=== PATIENT | female | born 1935 | race African-American/Black ===

== ENCOUNTER → 2016-03-08 | Outpatient (CLI) | payer MEDICARE ==
[2016-03-08 10:50] LABS: PROTHROMBIN TIME 22.5 SEC (11.4-15.4)
== END ==
LOC: OD 09:47
PROVIDERS: ATTEND Internal Medicine
DX: Z79.01 Long term (current) use of anticoagulants (principal)
CPT/HCPCS: 36415; 85610

== ENCOUNTER → 2016-03-24 | Outpatient (CLI) | payer MEDICARE ==
[2016-03-24 11:54] LABS: PROTHROMBIN TIME 28.9 SEC (11.4-15.4)
== END ==
LOC: OD 10:51
PROVIDERS: ATTEND Internal Medicine
DX: Z79.01 Long term (current) use of anticoagulants (principal)
CPT/HCPCS: 36415; 85610

== ENCOUNTER → 2016-04-19 | Outpatient (CLI) | payer MEDICARE ==
[2016-04-19 12:55] LABS: PROTHROMBIN TIME 29.9 SEC (11.4-15.4)
== END ==
LOC: OD 11:39
PROVIDERS: ATTEND Internal Medicine
DX: Z79.01 Long term (current) use of anticoagulants (principal)
CPT/HCPCS: 36415; 85610

== ENCOUNTER → 2016-05-25 | Outpatient (CLI) | payer MEDICARE ==
[2016-05-25 13:07] LABS: PROTHROMBIN TIME 27.8 SEC (11.4-15.4)
== END ==
LOC: OD 11:45
PROVIDERS: ATTEND Internal Medicine
DX: Z79.01 Long term (current) use of anticoagulants (principal)
CPT/HCPCS: 36415; 85610

== ENCOUNTER → 2016-06-23 | Outpatient (CLI) | payer MEDICARE ==
[2016-06-23 13:19] LABS: PROTHROMBIN TIME 41.2 SEC (11.4-15.4)
== END ==
LOC: OD 12:18
PROVIDERS: ATTEND Internal Medicine
DX: Z79.01 Long term (current) use of anticoagulants (principal); Z51.81 Encounter for therapeutic drug level monitoring
CPT/HCPCS: 36415; 85610

== ENCOUNTER → 2016-06-28 | Outpatient (CLI) | payer MEDICARE ==
--- NOTE | 2016-06-28 13:28 | RADIOLOGY REPORT (SQ) ---
EXAM DESCRIPTION: RIBS RIGHT W/PA CHEST COMPLETED DATE/TIME: 06/28/2016 12:03 pm REASON FOR STUDY: PLEURODYNIA R07.81 PLEURODYNIA COMPARISON: None. TECHNIQUE: Frontal view of the chest and additional views of the right ribs acquired. NUMBER OF VIEWS: Five view. LIMITATIONS: None. FINDINGS: FRONTAL CXR: No pneumothorax. Mild blunting of the right costophrenic angle. No atelecta sis or infiltrates. RIBS: No displaced rib fractures. No lytic or blastic bony lesions. OTHER: No other significant finding. IMPRESSION: 1. NO ACUTE BONY FINDINGS IN THE RIGHT RIBS. 2. MILD BLUNTING OF THE RIGHT COSTOPHRENIC ANGLE, SMALL PLEURAL EFFUSION VERSUS MILD PLEURAL SCARRING . COMMENT: SITE OF TRAUMA/COMPLAINT MARKED/STAMP COMPLETED: YES. TECHNICAL DOCUMENTATION: JOB ID: [id number] [employer]- All Rights Reserved
== END ==
LOC: OD 11:05
PROVIDERS: ATTEND Internal Medicine
DX: R07.81 Pleurodynia (principal)

== ENCOUNTER → 2016-07-04 | Outpatient (CLI) | payer MEDICARE ==
[2016-07-04 12:35] LABS: ABSOLUTE BASOPHILS # (AUTO) 0.1 10^3/uL (0.0-0.2); ABSOLUTE EOSINOPHILS # (AUTO) 0.3 10^3/uL (0.0-0.6); ABSOLUTE LYMPHOCYTES (AUTO) 1.5 10^3/uL (0.5-4.7); ABSOLUTE MONOCYTES (AUTO) 0.3 10^3/uL (0.1-1.4); ABSOLUTE NEUT (AUTO) 3.5 10^3/uL (1.7-8.2); BASOPHILS % (AUTO) 1.4 % (0-2); EOSINOPHILS % (AUTO) 5.5 % (0-6); HEMATOCRIT 39.6 % (36.0-47.0); HGB HCT DIFFERENCE -0.6; LYMPHOCYTES % (AUTO) 26.7 % (13-45); MEAN CORPUSCULAR HGB CONC 32.8 g/dL (32.0-36.0); MEAN CORPUSCULAR VOLUME 88 fl (80-97); MONOCYTES % (AUTO) 5.2 % (3-13); RED BLOOD COUNT 4.47 10^6/uL (3.72-5.28); RED CELL DISTRIBUTION WIDTH 14.1 % (11.5-14.0); SEGMENTED NEUTROPHILS % (AUTO) 61.2 % (42-78); WHITE BLOOD COUNT 5.7 10^3/uL (4.0-10.5)
[2016-07-04 13:06] LABS: ALANINE AMINOTRANSFERASE 20 U/L (9-52); ALBUMIN 3.9 g/dL (3.5-5.0); ALKALINE PHOSPHATASE 123 U/L (38-126); ANION GAP 10 (5-19); ASPARTATE AMINO TRANSFERASE 20 U/L (14-36); BILIRUBIN,DIRECT 0.3 mg/dL (0.0-0.4); BILIRUBIN,TOTAL 0.6 mg/dL (0.2-1.3); BLOOD UREA NITROGEN 6 mg/dL (7-20); CALCIUM 9.3 mg/dL (8.4-10.2); CARBON DIOXIDE 27 mmol/L (22-30); CHLORIDE 105 mmol/L (98-107); CHOLESTEROL 133.69 mg/dL (0-200); CREATININE RESULT 1.14 mg/dL (0.52-1.25); Direct HDL 37 mg/dL (>40); GLUCOSE 86 mg/dL (75-110); POTASSIUM 4.6 mmol/L (3.6-5.0); SODIUM 142.4 mmol/L (137-145); TOTAL PROTEIN 7.8 g/dL (6.3-8.2); TRIGLYCERIDES 142 mg/dL (<150)
[2016-07-04 13:17] LABS: DIRECT LDL 53 mg/dL (<100)
== END ==
LOC: OD 11:18
PROVIDERS: ATTEND Internal Medicine
DX: R53.82 Chronic fatigue, unspecified (principal); I25.10 Atherosclerotic heart disease of native coronary artery without angina pectoris; E78.5 Hyperlipidemia, unspecified
CPT/HCPCS: 36415; 80053; 80061; 84443; 85025

== ENCOUNTER → 2016-07-05 | Outpatient (CLI) | payer MEDICARE ==
--- NOTE | 2016-07-05 15:15 | RADIOLOGY REPORT (SQ) ---
EXAM DESCRIPTION: CT CHEST WITH COMPLETED DATE/TIME: 07/05/2016 1:39 pm REASON FOR STUDY: PLEURAL EFFUSION J90 PLEURAL EFFUSION, NOT ELSEWHERE CLASSIFIED COMPARISON: CT abdomen pelvis 11/08/2006 Right rib detail films 06/28/2016 TECHNIQUE: CT scan of the chest performed using helical scanning technique with dynamic intravenous contrast injection. Images reviewed with lung, soft tissue and bone windows. Reconstructed coronal and sagittal MPR images reviewed. All images stored on PACS. All CT scanners at this facility use dose modulation, iterative reconstruction, and/or weight based d osing when appropriate to reduce radiation dose to as low as reasonably achievable (ALARA). [facility]: Dose Right [facility]: CareDose [facility]: Dose Right [facility]: Teradose 4D [facility]: [employer] CONTRAST TYPE AND DOSE: 80mL Isovue 370- low osmolar. RENAL FUNCTION: Creatinine 1.1 RADIATION DOSE: 6.60 mGy. LIMITATIONS: None. FINDINGS: LUNGS AND PLEURA: A 2.2 x 1.4 cm pleural-based spiculated nodule is present at the lateral edge of the right minor fissure. This is best shown on axial image 75 and coronal image 27. A 9 mm smooth round subpleural nodule is present in the periphery of the right middle lobe on axial i mage 83 and coronal image 37. In the right posterior costophrenic sulcus, trace pleural effusion is present. There is a 4 x 2 cm l [place] parenchymal nodule in the right lower lobe which may represent round atelectasis. This is best s hown on axial image 86 and sagittal image 22. Elsewhere in both lungs, there is diffuse hyperinflation and hyperlucency from obstructive disease. Calcified granuloma right middle lobe. No left pleural effusion or pleural calcifications. No right or left pneumothorax. HILAR AND MEDIASTINAL STRUCTURES: Calcified 1.8 x 1.4 cm precarinal lymph node likely related old gra nulomatous disease HEART AND VASCULAR STRUCTURES: No thoracic aortic dissection. Thoracic aorta measures [address] diameter along the ascending aorta, upper limits of normal. Heavy coronary artery calcification. No central pulmonary emboli. No pericardial effusion. HARDWARE: None in the chest. UPPER ABDOMEN: Abdominal aorta stent graft is seen at the bottom edge of the field of view. Small bi lateral intrarenal nonobstructive less than 5 mm kidney stones are present. THYROID AND OTHER SOFT TISSUES: No masses. No adenopathy. BONES: Degenerative disc changes with vertebral body endplate sclerosis at T5-6 and T6-7 OTHER: No other significant finding. IMPRESSION: Trace right pleural effusion. 2.2 x 1.4 cm pleural-based right middle lobe nodule, postinflammatory versus malignant. Consider PET -CT for further evaluation of this finding. Probable rounded atelectasis in the right posterior costophrenic sulcus Significant obstructive lung disease. TECHNICAL DOCUMENTATION: JOB ID: [id number] Quality ID # 436: Final reports with documentation of one or more dose reduction techniques (e.g., Au tomated exposure control, adjustment of the mA and/or kV according to patient size, use of iterative reconstruction technique) 2010 [employer]- All Rights Reserved
== END ==
LOC: RAD 12:44
PROVIDERS: ATTEND Internal Medicine
DX: J90 Pleural effusion, not elsewhere classified (principal)
CPT/HCPCS: 71260

== ENCOUNTER → 2016-07-16 | Outpatient (CLI) | payer MEDICARE, OTHER ==
--- NOTE | 2016-07-17 13:51 | RADIOLOGY REPORT (SQ) ---
EXAM DESCRIPTION: PET CT LIMITED COMPLETED DATE/TIME: 07/16/2016 9:18 pm REASON FOR STUDY: RIGHT MIDDLE LOBE NODULE R91.1 SOLITARY PULMONARY NODULE R93.8 ABNORMAL FINDINGS ON DIAGNOSTIC IMAGING OF BODY STRUCT COMPARISON: CT chest dated 07/05/2016. RADIONUCLIDE AND DOSE: 12.0 mCi F18 FDG The route of agent administration: Intravenous FASTING BLOOD SUGAR: 90 mg/dl CONTRAST TYPE AND DOSE: No CT contrast given. TECHNIQUE: Blood glucose level was verified. Above dose of FDG was injected intravenously. 2-D seg mented attenuation correction images were obtained from the base of the skull to the midthighs. Nonc ontrast CT images were obtained for attenuation correction and fusion with emission images. CT image s were performed without oral or intravenous contrast and are not sensitive for parenchymal lesions. A series of overlapping emission PET images were obtained. Images reviewed and manipulated at [facility] work station by the radiologist. Images stored on PACS. LIMITATIONS: None. FINDINGS: HEAD AND NECK: No areas of abnormal metabolic activity in the soft tissues of the head and neck. CHEST: Moderate right pleural effusion which has increased in size. Mass in the posterior right lowe r lobe with mean SUV value 10.39. Additional nodular areas of increased activity within the posterio r right pleural effusion with mean SUV values 6.8 and 16.94. Spiculated lesion in the anterior right upper chest with mean SUV value 6.71. Small subpleural nodule in the medial right upper lobe adjace nt to the cardiac silhouette with mean SUV value 2.61. Calcified lymph nodes in the precarinal regio n and right hilum with no abnormal activity. ABDOMEN AND PELVIS: No areas of abnormal metabolic activity in the abdomen or pelvis. Expected physi ologic activity is present in the genitourinary system and bowel. PROXIMAL LOWER EXTREMITIES: No areas of abnormal metabolic activity in the soft tissues of the lower extremities. BONES: No abnormal metabolic activity in the visualized skeleton. ADDITIONAL CT FINDINGS: Aortoiliac grafts and grafts in the right common femoral and superficial femo ral and deep femoral arteries. No other additional significant findings on the noncontrast CT images . OTHER: No other significant findings. IMPRESSION: 1. LESIONS IN THE RIGHT LUNG DESCRIBED WITH ABNORMAL INCREASED ACTIVITY CONSISTENT WITH MALIGNANCY . MANY OF THESE LESIONS ARE RELATED TO THE MODERATE RIGHT PLEURAL EFFUSION AND/OR PLEURAL-BASED IN N ATURE AND MAY REPRESENT MALIGNANT PLEURAL EFFUSION WITH SPREAD. NO SUSPICIOUS MEDIASTINAL OR HILAR A DENOPATHY. 2. REMAINDER OF THE PET SCAN IS OTHERWISE UNREMARKABLE. INCIDENTAL CT FINDINGS ABOVE. TECHNICAL DOCUMENTATION: JOB ID: [id number] [employer]- All Rights Reserved
== END ==
LOC: RAD 19:20
PROVIDERS: ATTEND Internal Medicine
DX: R91.1 Solitary pulmonary nodule (principal)
CPT/HCPCS: 78814; A9552

== ENCOUNTER → 2016-10-24 | Outpatient (CLI) | payer MEDICARE ==
--- NOTE | 2016-10-24 11:22 | RADIOLOGY REPORT (SQ) ---
EXAM DESCRIPTION: CT CHEST WITH COMPLETED DATE/TIME: 10/24/2016 10:10 am REASON FOR STUDY: LUNG CA (C34.31) C34.31 MALIGNANT NEOPLASM OF LOWER LOBE, RIGHT BRONCHUS OR L COMPARISON: 07/16/2016 PET-CT. 07/05/2016 CT chest. TECHNIQUE: CT scan of the chest performed using helical scanning technique with dynamic intravenous contrast injection. Images reviewed with lung, soft tissue and bone windows. Reconstructed coronal and sagittal MPR images reviewed. All images stored on PACS. All CT scanners at this facility use dose modulation, iterative reconstruction, and/or weight based d osing when appropriate to reduce radiation dose to as low as reasonably achievable (ALARA). [facility]: Dose Right [facility]: CareDose [facility]: Dose Right [facility]: Teradose 4D [facility]: SMX CONTRAST TYPE AND DOSE: contrast/concentration: Isovue 370.00 mg/ml; Total Contrast Delivered: 80.0 ml; Total Saline Delivered: 55.0 ml RENAL FUNCTION: Creatinine 1.5. RADIATION DOSE: Up-to-date CT equipment and radiation dose reduction techniques were employed. CTDIv ol: 6.3 mGy. DLP: 239 mGy-cm. . LIMITATIONS: None. FINDINGS: LUNGS AND PLEURA: Upper lobe emphysema and areas of scar, linear density most pronounced i n the right mid to upper lung zone. Associated nodular pleural based density laterally is much less conspicuous. Some persistent nodularity along the medial posterior right lung base, decreased in siz e. This now measures 1.1 x 2.6 cm, associated with mild pleural fluid which has also decreased since prior. 4 mm left lower lobe apex nodule, stable. No new or developing lung lesions are appreciated . HILAR AND MEDIASTINAL STRUCTURES: Small precarinal node, subcentimeter. Small hilar nodes, stable. Right hilar nodes are calcified. HEART AND VASCULAR STRUCTURES: Cardiac enlargement with mild stable pericardial effusion. Coronary c alcification as before. No aortic aneurysm or dissection. Great vessel origins are patent. Central pulmonary arteries are free of clot. HARDWARE: Right port. UPPER ABDOMEN: Nephrolithiasis. No developing adrenal mass. THYROID AND OTHER SOFT TISSUES: No masses. No adenopathy. BONES: No significant finding. OTHER: No other significant finding. IMPRESSION: 1. Improved right lung findings. This includes decreased pleural fluid and improved nod ular mass along the posterior pleural surface. Also, along linear scarring in the right lateral lung , there is less nodularity, essentially resolved subpleural density here. No new lesions are suggest ed. TECHNICAL DOCUMENTATION: JOB ID: [id number] Quality ID # 436: Final reports with documentation of one or more dose reduction techniques (e.g., Au tomated exposure control, adjustment of the mA and/or kV according to patient size, use of iterative reconstruction technique) 2010 [employer]- All Rights Reserved
== END ==
LOC: RAD 09:25
PROVIDERS: ATTEND Physician Assistant
DX: C34.31 Malignant neoplasm of lower lobe, right bronchus or lung (principal)
CPT/HCPCS: 71260; 82565

== ENCOUNTER → 2017-01-11 | Outpatient (CLI) | payer MEDICARE ==
--- NOTE | 2017-01-11 16:01 | RADIOLOGY REPORT (SQ) ---
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 PET-CT dated 07/16/2016. TECHNIQUE: CT scan of the chest performed using helical scanning technique with dynamic intravenous contrast injection. Images reviewed with lung, soft tissue and bone windows. Reconstructed coronal and sagittal MPR images reviewed. All images stored on PACS. All CT scanners at this facility use dose modulation, iterative reconstruction, and/or weight based d osing when appropriate to reduce radiation dose to as low as reasonably achievable (ALARA). [facility]: Dose Right [facility]: CareDose [facility]: Dose Right [facility]: Teradose 4D [facility]: [employer] CONTRAST TYPE AND DOSE: 72 mL Isovue 370- low osmolar. RENAL FUNCTION: Creatinine 1.0. RADIATION DOSE: . LIMITATIONS: None. FINDINGS: LUNGS AND PLEURA: Emphysematous changes with chronic scarring. Linear scarring in the mid right lung stable. Small posterior pleural effusion versus pleural thickening slightly decreased. Pleural-based nodule in the posterior right lung base has decreased in size. Current measurements 1 x 1.8 cm with prior measurement 1.1 x 2.6 cm. 4 mm nodule in the superior segment left lower lobe un changed. No new nodules or masses. HILAR AND MEDIASTINAL STRUCTURES: No identified masses or abnormal nodes. HEART AND VASCULAR STRUCTURES: No aneurysm or dissection. No central pulmonary emboli. No pericardi al effusion. HARDWARE: Vascular access port. UPPER ABDOMEN: See separate report of the CT of the abdomen. THYROID AND OTHER SOFT TISSUES: No masses. No adenopathy. BONES: No significant finding. OTHER: No other significant finding. IMPRESSION: GENERALLY IMPROVED APPEARANCE OF THE CHEST. SLIGHT DECREASE IN THE RIGHT PLEURAL EFFUSI ON/PLEURAL THICKENING AND DECREASE IN THE PLEURAL BASED MASS IN THE POSTERIOR RIGHT LUNG BASE. NO NE W FINDINGS. TECHNICAL DOCUMENTATION: JOB ID: [id number] Quality ID # 436: Final reports with documentation of one or more dose reduction techniques (e.g., Au tomated exposure control, adjustment of the mA and/or kV according to patient size, use of iterative reconstruction technique) 2010 [employer]- All Rights Reserved
--- NOTE | 2017-01-11 16:11 | RADIOLOGY REPORT (SQ) ---
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 TECHNIQUE: CT scan of the abdomen and pelvis performed using helical scanning technique with dynamic intravenous contrast injection. No oral contrast. Images reviewed with lung, soft tissue, and bone windows. Reconstructed coronal and sagittal MPR images reviewed. Delayed images for evaluation of the urinary system also acquired. All images stored on PACS. All CT scanners at this facility use dose modulation, iterative reconstruction, and/or weight based d osing when appropriate to reduce radiation dose to as low as reasonably achievable (ALARA). [facility]: Dose Right [facility]: CareDose [facility]: Dose Right [facility]: Teradose 4D [facility]: [employer] CONTRAST TYPE AND DOSE: contrast/concentration: Isovue 370.00 mg/ml; Total Contrast Delivered: 72.0 ml; Total Saline Delivered: 66.0 ml RENAL FUNCTION: Creatinine 1.0. RADIATION DOSE: CT Rad equipment meets quality standard of care and radiation dose reduction techniq ues were employed. CTDIvol: 4.6 - 4.8 mGy. DLP: 645 mGy-cm.. LIMITATIONS: None. FINDINGS: LOWER CHEST: See separate report of the CT of the chest. LIVER: Normal size. No masses. No dilated ducts. SPLEEN: Normal size. No focal lesions. PANCREAS: No masses. No significant calcifications. No adjacent inflammation or peripancreatic fluid collections. Pancreatic duct not dilated. GALLBLADDER: No identified stones by CT criteria. No inflammatory changes to suggest cholecystitis. ADRENAL GLANDS: No significant masses or asymmetry. RIGHT KIDNEY AND URETER: No solid masses. Small calyceal calculi. No hydronephrosis or hydrourete r. LEFT KIDNEY AND URETER: No solid masses. Small calyceal calculi. No hydronephrosis or hydroureter . AORTA AND VESSELS: Patent aortoiliac stents. Proximal right femoral artery grafts visualized. Contr ast in the [place] femoral artery but no contrast visualized in the grafts. Otherwise patent vessels. RETROPERITONEUM: Retroperitoneal lymph node between the abdominal aorta and inferior vena cava, best visualized on series 8, image 33. Currently measures 2 cm with prior measurement 2.2 cm on PET-CT. There are a few additional retroperitoneal lymph nodes at this level which are not pathologically enl arged. BOWEL AND PERITONEAL CAVITY: No masses or inflammatory changes. No free fluid or peritoneal masses. APPENDIX: Normal. PELVIS: No mass. No free fluid. Normal bladder. ABDOMINAL WALL: No masses. No hernias. BONES: No significant or acute findings. Degenerative changes in the spine OTHER: No other significant finding. IMPRESSION: 1. RETROPERITONEAL LYMPH NODE DESCRIBED WHICH HAS DECREASED IN SIZE SINCE THE PRIOR PET-CT. ON PRIOR PET-CT THIS LYMPH NODE DID NOT DEMONSTRATE INCREASED ACTIVITY. 2. SMALL NONOBSTRUCTING CALYCEAL CALCULI IN BOTH KIDNEYS. 3. PATENT AORTOILIAC STENTS. CONTRAST IS NOT VISUALIZED IN THE VISUALIZED PROXIMAL RIGHT FEMORAL ART FAUSTINO GRAFTS. CONCERNING FOR OCCLUSION. 4. NO OTHER SIGNIFICANT OR ACUTE FINDING IN THE ABDOMEN OR PELVIS ON CT SCAN WITH IV CONTRAST. TECHNICAL DOCUMENTATION: JOB ID: [id number] Quality ID # 436: Final reports with documentation of one or more dose reduction techniques (e.g., Au tomated exposure control, adjustment of the mA and/or kV according to patient size, use of iterative reconstruction technique) 2010 [employer]- All Rights Reserved
== END ==
LOC: RAD 15:04
PROVIDERS: ATTEND Internal Medicine
DX: C34.31 Malignant neoplasm of lower lobe, right bronchus or lung (principal)
CPT/HCPCS: 71260; 74177; 82565

== ENCOUNTER → 2017-01-26 | Outpatient (CLI) | payer MEDICARE ==
--- NOTE | 2017-01-26 16:20 | RADIOLOGY REPORT (SQ) ---
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 The route of agent administration: Intravenous. ADDITIONAL DRUGS AND DOSES: None. TECHNIQUE: Routine delayed images at 3 hours post radionuclide injection acquired of the bony skelet on including anterior and posterior whole-body projections and additional focused images as needed. LIMITATIONS: None. FINDINGS: BONES: No bone scan evidence of metastatic disease. 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 There is mild increased uptake along the distal aspect of the tibial bony stump. Mild increased uptake at the left patella, and left 1st metatarsophalangeal joint region, bilateral shoul ders likely due to osteoarthritis KIDNEYS: Symmetric excretion without obstruction. OTHER: No other significant finding. IMPRESSION: No bone scan evidence for metastatic disease Increased uptake along the below the knee amputation tibial stump COMMENT: Quality measure 147: Current bone scan is compared with any available plain radiographs, p rior bone scans, and CT/MRI. TECHNICAL DOCUMENTATION: JOB ID: [id number] [employer]- All Rights Reserved
== END ==
LOC: RAD 08:33
PROVIDERS: ATTEND Internal Medicine
DX: C34.31 Malignant neoplasm of lower lobe, right bronchus or lung (principal)
CPT/HCPCS: 78306; A9561; Q9969

== ENCOUNTER → 2017-03-06 | Outpatient (CLI) | payer MEDICARE, MEDICAID ==
--- NOTE | 2017-03-06 16:19 | RADIOLOGY REPORT (SQ) ---
EXAM DESCRIPTION: CT CHEST WITH; CT ABD/PELVIS WITH IV ORAL COMPLETED DATE/TIME: 03/06/2017 10:49 am REASON FOR STUDY: LUNG CA C34.31 MALIGNANT NEOPLASM OF LOWER LOBE, RIGHT BRONCHUS OR L COMPARISON: 01/11/2017. CONTRAST TYPE AND DOSE: contrast/concentration: Isovue 370.00 mg/ml; Total Contrast Delivered: 70.0 ml; Total Saline Delivered: 66.0 ml RENAL FUNCTION: Creatinine 1.4 TECHNIQUE: CT scan of the chest performed using helical scanning technique with dynamic intravenous contrast injection. Images reviewed with lung, soft tissue and bone windows. Reconstructed coronal a nd sagittal MPR images reviewed. All images stored on PACS. CT scan of the abdomen and pelvis performed with intravenous and with oral contrastusing helical scan tonia technique with dynamic intravenous contrast injection. Images reviewed with lung, soft tissue a nd bone windows. Reconstructed coronal and sagittal MPR images reviewed. Delayed images for evaluat ion of the urinary system also acquired and evaluated. All images stored on PACS. All CT scanners at this facility use dose modulation, iterative reconstruction, and/or weight based d osing when appropriate to reduce radiation dose to as low as reasonably achievable (ALARA). [facility]: Dose Right [facility]: CareDose [facility]: Dose Right [facility]: Teradose 4D [facility]: [employer] RADIATION DOSE: CT Rad equipment meets quality standard of care and radiation dose reduction techniq ues were employed. CTDIvol: 4.6 - 5.0 mGy. DLP: 876 mGy-cm. . LIMITATIONS: None. FINDINGS: CHEST: LUNGS AND PLEURA: Right posterior pleural based mass looks larger, now with just under 2.9 cm. Not c lassic for round atelectasis. Previously I measure this lesion as close to 1.8 cm. Trace adjacent p leural reaction, as before. Stable appearance of the emphysema and scarring otherwise. No new opaci ties. HILAR AND MEDIASTINAL STRUCTURES: No identified masses or abnormal nodes. HEART AND VASCULAR STRUCTURES: Slightly progressive but still relatively small pericardial effusion s uggested. Cardiac enlargement with marked coronary calcification. No developing aortic aneurysm or dissection. No gross central pulmonary embolus. HARDWARE: Right port. THYROID AND OTHER SOFT TISSUES: No masses. No adenopathy. BONES: Osteopenic. No destructive lesions or acute fracture evident. OTHER: No other significant finding. ABDOMEN AND PELVIS: LIVER: Normal size. No masses. No dilated ducts. SPLEEN: Normal size. No focal lesions. PANCREAS: No masses. No significant calcifications. No adjacent inflammation or peripancreatic fluid collections. Pancreatic duct not dilated. GALLBLADDER: No identified stones by CT criteria. No inflammatory changes to suggest cholecystitis. ADRENAL GLANDS: No significant masses or asymmetry. RIGHT KIDNEY AND URETER: Nonobstructive nephrolithiasis. LEFT KIDNEY AND URETER: Nonobstructive nephrolithiasis. AORTA AND VESSELS: Status post endovascular repair of aortic aneurysm without gross endoleak suggeste d. Heavy vascular calcification of the celiac axis and origin calcification of the SMA and bilateral renal arteries. No gross occlusion evident on today's study. No overt venous clot detected. RETROPERITONEUM: Retroperitoneal adenopathy is once again noted with and aortocaval node measuring up to 1.5 cm short axis, grossly stable. BOWEL AND PERITONEAL CAVITY: Fair amount of retained stool suggesting constipation. No mechanical misael wel obstruction. No active inflammatory change or ascites. No bulky adenopathy allowing for limitin g paucity of intra-abdominal fat. APPENDIX: Normal. ABDOMINAL WALL: No bowel containing hernia or mass. Chronic scarring and postoperative changes in th e right and left groin regions. Patient has right femoral bypass graft which is incompletely assesse d. BONES: No developing lesions appreciated. OTHER: No other significant finding. IMPRESSION: 1. Pleural-based lesion in the right lower lobe looks larger on current study relative t o the most recent comparison. 2. No developing lung lesions otherwise. 3. Stable retroperitoneal a denopathy. TECHNICAL DOCUMENTATION: JOB ID: [id number] Quality ID # 436: Final reports with documentation of one or more dose reduction techniques (e.g., Au tomated exposure control, adjustment of the mA and/or kV according to patient size, use of iterative reconstruction technique) 2010 [employer]- All Rights Reserved
== END ==
LOC: RAD 09:23
PROVIDERS: ATTEND Internal Medicine
DX: C34.31 Malignant neoplasm of lower lobe, right bronchus or lung (principal)
CPT/HCPCS: 71260; 74177

== ENCOUNTER → 2017-03-26 | Outpatient (CLI) | payer MEDICARE, MEDICAID ==
--- NOTE | 2017-03-26 15:47 | RADIOLOGY REPORT (SQ) ---
EXAM DESCRIPTION: MRI HEAD COMBO COMPLETED DATE/TIME: 03/26/2017 10:36 am REASON FOR STUDY: LUNG CA C34.31 MALIGNANT NEOPLASM OF LOWER LOBE, RIGHT BRONCHUS OR L COMPARISON: None. TECHNIQUE: Multiplanar imaging includes noncontrasted T1, T2, FLAIR, diffusion with ADC map and post gadolinium contrast T1 sequences. Images stored on PACS. CONTRAST TYPE AND DOSE: 10 mL [employer] RENAL FUNCTION: Creatinine 0.8 LIMITATIONS: None. FINDINGS: ANATOMY: No anomalies. Normal vascular flow voids. Pituitary fossa normal. CSF SPACES: Normal in size and contour. No hemorrhage. CEREBRUM: Mild chronic small vessel ischemic disease. 5 mm area of restricted diffusion in the left parietal lobe consistent with small acute lacunar infarct in white matter. No associated abnormal en hancement. There is no evidence of hemorrhage, mass effect or white matter edema. No metastatic foc i are seen. POSTERIOR FOSSA: No signal alteration. No hemorrhage. No edema, masses, or mass effect. Internal jolly tory canals, cerebellopontine angles, mastoids normal. No enhancing lesions. No abnormal enhancement post contrast. DIFFUSION IMAGING: Negative for acute or subacute infarction. ORBITS: No masses. Globes normal. PARANASAL SINUSES: No fluid levels. Mucosa normal. OTHER: High-signal it is seen in the petrous apex on the left on both the T1 and T2 images consistent with cholesterol granuloma. IMPRESSION: 1. No evidence of metastatic disease involving the brain. 2. Mild chronic small vessel ischemic disease involving the white matter with small acute lacunar in farct in the white matter on the left. 3. High signal is seen in the petrous apex on the left both on the T1 and T2 images consistent with cholesterol granuloma. EVIDENCE OF ACUTE STROKE: YES. Small white matter focus. TECHNICAL DOCUMENTATION: JOB ID: [id number] [employer]- All Rights Reserved
== END ==
LOC: RAD 09:07
PROVIDERS: ATTEND Internal Medicine
DX: C34.31 Malignant neoplasm of lower lobe, right bronchus or lung (principal)
CPT/HCPCS: 82565; 70553; A9577

== ENCOUNTER → 2017-07-20 | Outpatient (CLI) | payer MEDICAID, MEDICARE ==
--- NOTE | 2017-07-20 11:00 | RADIOLOGY REPORT (SQ) ---
EXAM DESCRIPTION: CT ABD/PELVIS WITH IV ONLY; CT CHEST WITH COMPLETED DATE/TIME: 07/20/2017 9:00 am REASON FOR STUDY: LUNG CA (C34.31) C34.31 MALIGNANT NEOPLASM OF LOWER LOBE, RIGHT BRONCHUS OR L COMPARISON: CT chest abdomen pelvis 03/06/2017, 01/11/2017 CT chest 10/24/2016 PET-CT 07/16/2016 Bone scan 01/26/2017 CONTRAST TYPE AND DOSE: contrast/concentration: Isovue 370.00 mg/ml; Total Contrast Delivered: 64.0 ml; Total Saline Delivered: 58.0 ml RENAL FUNCTION: Creatinine 1.1 TECHNIQUE: CT scan of the chest performed using helical scanning technique with dynamic intravenous contrast injection. Images reviewed with lung, soft tissue and bone windows. Reconstructed coronal a nd sagittal MPR images reviewed. All images stored on PACS. CT scan of the abdomen and pelvis performed with intravenous and without oral contrastusing helical s venecia technique with dynamic intravenous contrast injection. Images reviewed with lung, soft tissu e and bone windows. Reconstructed coronal and sagittal MPR images reviewed. Delayed images for eval uation of the urinary system also acquired and evaluated. All images stored on PACS. All CT scanners at this facility use dose modulation, iterative reconstruction, and/or weight based d osing when appropriate to reduce radiation dose to as low as reasonably achievable (ALARA). [facility]: Dose Right [facility]: CareDose [facility]: Dose Right [facility]: Teradose 4D [facility]: Smart [employer] RADIATION DOSE: CT Rad equipment meets quality standard of care and radiation dose reduction techniq ues were employed. CTDIvol: 4.9 - 5.1 mGy. DLP: 680 mGy-cm. . LIMITATIONS: None. FINDINGS: CHEST: LUNGS AND PLEURA: Stable postsurgical changes in the right middle lobe along the minor fissure. No r ecurrent mass or tumor along the staple line. There is very mild pleural thickening in the right posterior costophrenic sulcus. This is 0.5 cm nod ule in this area seen on 03/06/2017 is no longer identified. Remainder of the lungs and pleura are otherwise unremarkable aside from obstructive lung disease. rways are patent. No pleural effusions. No pneumothorax. HILAR AND MEDIASTINAL STRUCTURES: Stable calcified precarinal lymph node, 1.9 x 1.5 cm in size as com pared to 03/06/2017 and 01/11/2017. HEART AND VASCULAR STRUCTURES: No aneurysm or dissection. No central pulmonary emboli. Trace stable pericardial effusion. Very heavily calcified coronary arteries. HARDWARE: Right-sided permanent central line tip superior vena cava. There is right subclavian vein stenosis on axial images 23-25. THYROID AND OTHER SOFT TISSUES: No masses. No adenopathy. BONES: No significant finding. OTHER: No other significant finding. ABDOMEN AND PELVIS: LIVER: Normal size. No masses. No dilated ducts. SPLEEN: Normal size. No focal lesions. PANCREAS: No masses. No significant calcifications. No adjacent inflammation or peripancreatic fluid collections. Pancreatic duct not dilated. GALLBLADDER: No identified stones by CT criteria. No inflammatory changes to suggest cholecystitis. ADRENAL GLANDS: No significant masses or asymmetry. RIGHT KIDNEY AND URETER: No solid masses. Multiple less than 5 mm intrarenal nonobstructive stones. No hydronephrosis or hydroureter. LEFT KIDNEY AND URETER: No solid masses. Multiple less than 5 mm intrarenal nonobstructive stones. N o hydronephrosis or hydroureter. AORTA AND VESSELS: Very heavily calcified abdominal aorta and major branches with infrarenal abdomina l aorta stent graft. Aneurysm sac now measures 4 cm in greatest diameter just above the iliac bifurc ation (was 4.8 cm in diameter on previous studies). Heavy atherosclerotic arterial vascular calcific ation of the visceral arteries. High-grade stenosis right proximal superficial femoral artery calix l image 35. Occluded left proximal superficial femoral artery. RETROPERITONEUM: No retroperitoneal adenopathy, hemorrhage or masses. BOWEL AND PERITONEAL CAVITY: No oral contrast. No CT evidence of bowel obstruction or free intraperi toneal air or fluid. APPENDIX: Normal. ABDOMINAL WALL: No masses. No hernias. PELVIS: No mass or free fluid. Normal bladder. BONES: Degenerative changes lumbar spine OTHER: No other significant finding. IMPRESSION: Treatment response, with resolution of right posterior lower lobe pleural-based nodule s caleb 03/06/2017. No CT evidence of diffuse metastatic disease over the chest abdomen or pelvis. TECHNICAL DOCUMENTATION: JOB ID: [id number] Quality ID # 436: Final reports with documentation of one or more dose reduction techniques (e.g., Au tomated exposure control, adjustment of the mA and/or kV according to patient size, use of iterative reconstruction technique) 2010 [employer]- All Rights Reserved Reading location - IP/workstation name: [email or web address]
== END ==
LOC: RAD 08:22
PROVIDERS: ATTEND Internal Medicine
DX: C34.31 Malignant neoplasm of lower lobe, right bronchus or lung (principal)
CPT/HCPCS: 71260; 74177

== ENCOUNTER → 2017-10-29 | Outpatient (CLI) | payer MEDICAID, MEDICARE ==
--- NOTE | 2017-10-29 15:40 | RADIOLOGY REPORT (SQ) ---
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 Images reviewed with lung, soft tissue and bone windows. Reconstructed coronal and sagittal MPR and MIP images reviewed. All images stored on PACS. All CT scanners at this facility use dose modulation, iterative reconstruction, and/or weight based d osing when appropriate to reduce radiation dose to as low as reasonably achievable (ALARA). [facility]: Dose Right [facility]: CareDose [facility]: Dose Right [facility]: Teradose 4D [facility]: Smart [employer] CONTRAST TYPE AND DOSE: See separate report of the same date. RENAL FUNCTION: See separate report of the same date. RADIATION DOSE: . LIMITATIONS: None. FINDINGS: LUNGS AND PLEURA: Calcified granuloma right lung. Stable bandlike scarring along the righ t major fissure. No developing nodules or effusions. HILAR AND MEDIASTINAL STRUCTURES: No identified masses or abnormal nodes. HEART AND VASCULAR STRUCTURES: No aneurysm or dissection. No central pulmonary emboli. No pericardi al effusion. HARDWARE: None in the chest. UPPER ABDOMEN: See separate report of the CT of the abdomen. THYROID AND OTHER SOFT TISSUES: No masses. No adenopathy. BONES: No acute findings. OTHER: Right-sided port tip in the SVC. IMPRESSION: No evidence of local recurrence or metastatic disease. TECHNICAL DOCUMENTATION: JOB ID: [id number] Quality ID # 436: Final reports with documentation of one or more dose reduction techniques (e.g., Au tomated exposure control, adjustment of the mA and/or kV according to patient size, use of iterative reconstruction technique) 2010 [employer]- All Rights Reserved Reading location - IP/workstation name: [email or web address]
--- NOTE | 2017-10-29 15:44 | RADIOLOGY REPORT (SQ) ---
EXAM DESCRIPTION: CT ABD/PELVIS WITH IV ONLY COMPLETED DATE/TIME: 10/29/2017 3:12 pm REASON FOR STUDY: C34.31 LUNG CANCER C34.31 MALIGNANT NEOPLASM OF LOWER LOBE, RIGHT BRONCHUS OR L COMPARISON: 07/20/2017 TECHNIQUE: CT scan of the abdomen and pelvis performed using helical scanning technique with dynamic intravenous contrast injection. No oral contrast. Images reviewed with lung, soft tissue, and bone windows. Reconstructed coronal and sagittal MPR images reviewed. Delayed images for evaluation of the urinary system also acquired. All images stored on PACS. All CT scanners at this facility use dose modulation, iterative reconstruction, and/or weight based d osing when appropriate to reduce radiation dose to as low as reasonably achievable (ALARA). [facility]: Dose Right [facility]: CareDose [facility]: Dose Right [facility]: Teradose 4D [facility]: [employer] CONTRAST TYPE AND DOSE: contrast/concentration: Isovue 350.00 mg/ml; Total Contrast Delivered: 71.0 ml; Total Saline Delivered: 66.0 ml RENAL FUNCTION: Creatinine 1.3 RADIATION DOSE: CT Rad equipment meets quality standard of care and radiation dose reduction techniq ues were employed. CTDIvol: 5.8 - 6.6 mGy. DLP: 790 mGy-cm.. LIMITATIONS: None. FINDINGS: LOWER CHEST: See separate report of the CT of the chest. LIVER: Normal size. No masses. No dilated ducts. SPLEEN: Normal size. No focal lesions. PANCREAS: No masses. No significant calcifications. No adjacent inflammation or peripancreatic fluid collections. Pancreatic duct not dilated. GALLBLADDER: No identified stones by CT criteria. No inflammatory changes to suggest cholecystitis. ADRENAL GLANDS: No significant masses or asymmetry. RIGHT KIDNEY AND URETER: No solid masses. Renal calculi measuring up to about 4 mm. No hydronephr osis or hydroureter. LEFT KIDNEY AND URETER: No solid masses. Renal calculi measuring up to 5 mm. No hydronephrosis or hydroureter. AORTA AND VESSELS: Stable appearance of aortic endograft. No significant endoleak. RETROPERITONEUM: No retroperitoneal adenopathy, hemorrhage or masses. BOWEL AND PERITONEAL CAVITY: No masses or inflammatory changes. No free fluid or peritoneal masses. APPENDIX: Normal. PELVIS: No mass. No free fluid. Normal bladder. ABDOMINAL WALL: No masses. No hernias. BONES: No acute findings. OTHER: No other significant finding. IMPRESSION: No evidence of metastatic disease. TECHNICAL DOCUMENTATION: JOB ID: [id number] Quality ID # 436: Final reports with documentation of one or more dose reduction techniques (e.g., Au tomated exposure control, adjustment of the mA and/or kV according to patient size, use of iterative reconstruction technique) 2010 [employer]- All Rights Reserved Reading location - IP/workstation name: [email or web address]
== END ==
LOC: RAD 15:38
PROVIDERS: ATTEND Internal Medicine
DX: C34.31 Malignant neoplasm of lower lobe, right bronchus or lung (principal)
CPT/HCPCS: 71260; 74177; 82565

== ENCOUNTER → 2018-01-24 | Outpatient (CLI) | payer MEDICAID, MEDICARE ==
--- NOTE | 2018-01-24 10:54 | RADIOLOGY REPORT (SQ) ---
EXAM DESCRIPTION: CT CHEST WITH COMPLETED DATE/TIME: 01/24/2018 10:12 am REASON FOR STUDY: LUNG CA (C34.31 C34.31 MALIGNANT NEOPLASM OF LOWER LOBE, RIGHT BRONCHUS OR L COMPARISON: 10/29/2017, 07/20/2017, 03/06/2017. TECHNIQUE: CT scan of the chest performed using helical scanning technique with dynamic intravenous contrast injection. Images reviewed with lung, soft tissue and bone windows. Reconstructed coronal and sagittal MPR and MIP images reviewed. All images stored on PACS. All CT scanners at this facility use dose modulation, iterative reconstruction, and/or weight based d osing when appropriate to reduce radiation dose to as low as reasonably achievable (ALARA). [facility]: Dose Right [facility]: CareDose [facility]: Dose Right [facility]: Teradose 4D [facility]: ZYB CONTRAST TYPE AND DOSE: 82 mL Omnipaque 350- low osmolar. RENAL FUNCTION: Creatinine 1.2. RADIATION DOSE: . LIMITATIONS: None. FINDINGS: LUNGS AND PLEURA: Emphysematous changes. Stable mild scarring in the right lung. Calcifi ed granuloma in the right lung. No opacities, nodules, masses. No pneumothorax. No effusions. HILAR AND MEDIASTINAL STRUCTURES: No identified masses or abnormal nodes. HEART AND VASCULAR STRUCTURES: No aneurysm or dissection. No central pulmonary emboli. Marked coron morris artery calcifications. Stable minimal pericardial effusion. HARDWARE: Vascular port. UPPER ABDOMEN: No significant findings. Limited exam. THYROID AND OTHER SOFT TISSUES: No masses. No adenopathy. BONES: No significant finding. OTHER: No other significant finding. IMPRESSION: STABLE CT OF THE CHEST WITH IV CONTRAST. EMPHYSEMATOUS CHANGES WITH SCARRING IN THE RIG HT LUNG. MILD PERICARDIAL EFFUSION, UNCHANGED FROM PRIOR STUDIES. NO EVIDENCE OF RESIDUAL OR RECURR ENT MALIGNANCY OR METASTASES. TECHNICAL DOCUMENTATION: JOB ID: [id number] Quality ID # 436: Final reports with documentation of one or more dose reduction techniques (e.g., Au tomated exposure control, adjustment of the mA and/or kV according to patient size, use of iterative reconstruction technique) 2010 [employer]- All Rights Reserved Reading location - IP/workstation name: [email or web address]
--- NOTE | 2018-01-24 11:05 | RADIOLOGY REPORT (SQ) ---
EXAM DESCRIPTION: CT ABD/PELVIS WITH IV ORAL COMPLETED DATE/TIME: 01/24/2018 10:12 am REASON FOR STUDY: LUNG CA (C34.31 C34.31 MALIGNANT NEOPLASM OF LOWER LOBE, RIGHT BRONCHUS OR L COMPARISON: 10/29/2017, 07/20/2017, 03/06/2017, and 01/11/2017. TECHNIQUE: CT scan of the abdomen and pelvis performed using helical scanning technique with dynamic intravenous contrast injection. No oral contrast. Images reviewed with lung, soft tissue, and bone windows. Reconstructed coronal and sagittal MPR images reviewed. Delayed images for evaluation of the urinary system also acquired. All images stored on PACS. All CT scanners at this facility use dose modulation, iterative reconstruction, and/or weight based d osing when appropriate to reduce radiation dose to as low as reasonably achievable (ALARA). [facility]: Dose Right [facility]: CareDose [facility]: Dose Right [facility]: Teradose 4D [facility]: [employer] CONTRAST TYPE AND DOSE: contrast/concentration: Isovue 350.00 mg/ml; Total Contrast Delivered: 82.0 ml; Total Saline Delivered: 68.0 ml RENAL FUNCTION: Creatinine 1.2. RADIATION DOSE: CT Rad equipment meets quality standard of care and radiation dose reduction techniq ues were employed. CTDIvol: 4.9 - 5.7 mGy. DLP: 752 mGy-cm.. LIMITATIONS: None. FINDINGS: LOWER CHEST: No significant findings. No nodules or infiltrates. LIVER: Normal size. No masses. No dilated ducts. SPLEEN: Normal size. No focal lesions. PANCREAS: No masses. No significant calcifications. No adjacent inflammation or peripancreatic fluid collections. Pancreatic duct not dilated. GALLBLADDER: No identified stones by CT criteria. No inflammatory changes to suggest cholecystitis. ADRENAL GLANDS: No significant masses or asymmetry. RIGHT KIDNEY AND URETER: No solid masses. Several small calyceal calculi. No hydronephrosis or hy droureter. LEFT KIDNEY AND URETER: No solid masses. Several small calyceal calculi. No hydronephrosis or hyd roureter. AORTA AND VESSELS: Patent aorto iliac endograft. The proximal portion of a right femoral bypass ana luisa t is visualized. Contrast does not enter the lumen of the bypass graft. RETROPERITONEUM: No retroperitoneal adenopathy, hemorrhage or masses. BOWEL AND PERITONEAL CAVITY: No masses or inflammatory changes. No free fluid or peritoneal masses. APPENDIX: Normal. PELVIS: No mass. No free fluid. Normal bladder. ABDOMINAL WALL: No masses. No hernias. BONES: No significant or acute findings. Degenerative changes in the lower lumbar spine. OTHER: No other significant finding. IMPRESSION: 1. SEVERAL SMALL NONOBSTRUCTING CALYCEAL CALCULI IN BOTH KIDNEYS. 2. PATENT AORTOILIAC ENDOGRAFT WITH NO CONCERNING APPEARANCE. A PORTION OF A RIGHT FEMORAL BYPASS GR AFT IS VISUALIZED AND APPEARS TO BE OCCLUDED. 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 3. NO OTHER SIGNIFICANT OR ACUTE FINDING IN THE ABDOMEN OR PELVIS ON CT SCAN WITH IV CONTRAST. NO EV IDENCE OF METASTATIC INVOLVEMENT. TECHNICAL DOCUMENTATION: JOB ID: [id number] Quality ID # 436: Final reports with documentation of one or more dose reduction techniques (e.g., Au tomated exposure control, adjustment of the mA and/or kV according to patient size, use of iterative reconstruction technique) 2010 [employer]- All Rights Reserved Reading location - IP/workstation name: [email or web address]
== END ==
LOC: RAD 09:22
PROVIDERS: ATTEND Internal Medicine
DX: C34.31 Malignant neoplasm of lower lobe, right bronchus or lung (principal); N20.0 Calculus of kidney; I31.3 Pericardial effusion (noninflammatory)
CPT/HCPCS: 71260; 74177; 82565

== ENCOUNTER → 2018-07-03 | Outpatient (CLI) | payer MEDICARE, MEDICAID ==
--- NOTE | 2018-07-03 15:16 | RADIOLOGY REPORT (SQ) ---
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 Images reviewed with lung, soft tissue and bone windows. Reconstructed coronal and sagittal MPR images reviewed. All images stored on PACS. CT scan of the abdomen and pelvis performed without intravenous contrast and withoutoral contrast usi ng helical scanning technique with dynamic intravenous contrast injection. Images reviewed with lung , soft tissue and bone windows. Reconstructed coronal and sagittal MPR images reviewed. All images stored on PACS. All CT scanners at this facility use dose modulation, iterative reconstruction, and/or weight based d osing when appropriate to reduce radiation dose to as low as reasonably achievable (ALARA). [facility]: Dose Right [facility]: CareDose [facility]: Dose Right [facility]: Teradose 4D [facility]: [employer] RADIATION DOSE: CT Rad equipment meets quality standard of care and radiation dose reduction techniq ues were employed. CTDIvol: 7.0 mGy. DLP: 510 mGy-cm. mGy. LIMITATIONS: No technical limitations. FINDINGS: CHEST: AXILLAE: No adenopathy. CHEST WALL: No masses. No subcutaneous air. LUNGS: Old surgical nikita along the right middle lobe. Calcified granuloma along the right minor f issure. No pneumothorax. No infiltrates. Hyperinflation from obstructive lung disease. PLEURA: There is stable chronic pleural thickening along the right posterior costophrenic sulcus. No pleural effusion. No gross pleural-based nodules THYROID: No masses or significant asymmetry. HILAR AND MEDIASTINAL STRUCTURES: No identified masses or abnormal nodes. AORTA AND GREAT VESSELS: No aneurysm. HEART: No pericardial effusion. Very heavily calcified coronary artery HARDWARE AND LIFELINES: Right-sided permanent central line tip superior vena cava BONES: No significant finding. OTHER: No other significant finding. ABDOMEN AND PELVIS: LIVER: Normal size. No masses. No dilated ducts. SPLEEN: Normal size. No focal lesions. PANCREAS: No masses. No significant calcifications. No adjacent inflammation or peripancreatic flui d collections. Pancreatic duct not dilated. GALLBLADDER: No identified stones by CT criteria. No inflammatory changes to suggest cholecystitis. ADRENAL GLANDS: No significant masses or asymmetry. RIGHT KIDNEY AND URETER: No solid masses. Assessment limited by lack of IV contrast. Multiple tiny r ight-sided intrarenal nonobstructive stones. No right ureteral stones. No hydronephrosis or hydroure ter. LEFT KIDNEY AND URETER: No solid masses. Assessment limited by lack of IV contrast. Multiple tiny le ft-sided intrarenal nonobstructive stones. No left ureteral stones. No hydronephrosis or hydroureter . AORTA AND VESSELS: No aneurysm. Previously treated aneurysm with aortic stent graft. RETROPERITONEUM: No retroperitoneal adenopathy, hemorrhage or masses. APPENDIX: Normal. LARGE AND SMALL BOWEL: No dilatation. No masses. No wall thickening. ABDOMINAL WALL: No hernia or masses. PERITONEAL CAVITY: No free air. No free fluid. No peritoneal implants or masses. PELVIS: No mass or free fluid. Normal bladder. Normal size female pelvic organs BONES: No significant or acute findings. OTHER: No other significant finding. IMPRESSION: No CT evidence of metastatic disease to the chest abdomen or pelvis given history of carrie g cancer. Stable pleural thickening in the right posterior costophrenic sulcus TECHNICAL DOCUMENTATION: JOB ID: [id number] Quality ID # 436: Final reports with documentation of one or more dose reduction techniques (e.g., Au tomated exposure control, adjustment of the mA and/or kV according to patient size, use of iterative reconstruction technique) 2010 [employer]- All Rights Reserved Reading location - IP/workstation name: [email or web address]
== END ==
LOC: RAD 13:27
PROVIDERS: ATTEND Internal Medicine
DX: C34.31 Malignant neoplasm of lower lobe, right bronchus or lung (principal)
CPT/HCPCS: 71250; 74176

== ENCOUNTER → 2019-01-06 | Outpatient (CLI) | payer MEDICAID, MEDICARE ==
--- NOTE | 2019-01-06 11:08 | RADIOLOGY REPORT (SQ) ---
EXAM DESCRIPTION: CT CHEST WITHOUT; CT ABD/PELVIS NO ORAL OR IV COMPLETED DATE/TIME: 01/06/2019 9:55 am REASON FOR STUDY: MALIGNANT NEOPLASM OF LOWER LOBE, RIGHT BRONCHUS OR LUNG C34.31 MALIGNANT NEOPLAS M OF LOWER LOBE, RIGHT BRONCHUS OR L COMPARISON: CT abdomen pelvis 07/03/2018, 01/24/2018, 10/29/2017, 07/20/2017, 03/06/2017 TECHNIQUE: CT scan of the chest performed without intravenous contrast using helical scanning techni que. Images reviewed with lung, soft tissue and bone windows. Reconstructed coronal and sagittal MPR images reviewed. All images stored on PACS. CT scan of the abdomen and pelvis performed without intravenous contrast and withoutoral contrast usi ng helical scanning technique with dynamic intravenous contrast injection. Images reviewed with lung , soft tissue and bone windows. Reconstructed coronal and sagittal MPR images reviewed. All images stored on PACS. All CT scanners at this facility use dose modulation, iterative reconstruction, and/or weight based d osing when appropriate to reduce radiation dose to as low as reasonably achievable (ALARA). [facility]: Dose Right [facility]: CareDose [facility]: Dose Right [facility]: Teradose 4D [facility]: Smart [employer] RADIATION DOSE: CT Rad equipment meets quality standard of care and radiation dose reduction techniq ues were employed. CTDIvol: 4.7 - 5.5 mGy. DLP: 462 mGy-cm. mGy. LIMITATIONS: No technical limitations. FINDINGS: CHEST: AXILLAE: No adenopathy. CHEST WALL: No masses. No subcutaneous air. LUNGS: Lungs are hyperinflated and hyperlucent from obstructive lung disease. Old wedge resection st ate in the lateral aspect right middle lobe. Stable bandlike scarring in the right posterior costoph renic sulcus. PLEURA: No effusions. No calcifications. THYROID: No masses or significant asymmetry. HILAR AND MEDIASTINAL STRUCTURES: No identified masses or abnormal nodes. AORTA AND GREAT VESSELS: No aneurysm. HEART: No pericardial effusion. Calcified coronary arteries. Trace pericardial effusion, similar co mpared to 07/03/2018 and 01/24/2018 HARDWARE AND LIFELINES: Right permanent central line tip superior vena cava. BONES: No significant finding. OTHER: No other significant finding. ABDOMEN AND PELVIS: LIVER: Normal size. No masses. No dilated ducts. SPLEEN: Normal size. No focal lesions. PANCREAS: No masses. No significant calcifications. No adjacent inflammation or peripancreatic flui d collections. Pancreatic duct not dilated. GALLBLADDER: No identified stones by CT criteria. No inflammatory changes to suggest cholecystitis. ADRENAL GLANDS: No significant masses or asymmetry. RIGHT KIDNEY AND URETER: No solid masses. Assessment limited by lack of IV contrast. Multiple calci fications of the right hilum, small intrarenal nonobstructive stones versus vascular calcifications. No hydronephrosis or hydroureter. LEFT KIDNEY AND URETER: No solid masses. Assessment limited by lack of IV contrast. Multiple calcif ications at the left renal hilum, small intrarenal stones versus vascular calcifications. No hydron ephrosis or hydroureter. AORTA AND VESSELS: Heavily calcified abdominal aorta, aortic stent graft throughout the infrarenal ab dominal aorta extending to the proximal common iliac arteries RETROPERITONEUM: No retroperitoneal adenopathy, hemorrhage or masses. APPENDIX: Normal, best shown on axial image 5 LARGE AND SMALL BOWEL: No dilatation. No masses. No wall thickening. ABDOMINAL WALL: No hernia or masses. PERITONEAL CAVITY: No free air. No free fluid. No peritoneal implants or masses. PELVIS: No mass or free fluid. Normal bladder. Normal size female pelvic organs. BONES: Lower lumbar facet arthropathy OTHER: No other significant finding. IMPRESSION: No CT evidence of metastatic disease to the chest abdomen or pelvis given history of carrie g cancer Obstructive lung disease Aortic stent graft without recurrent infrarenal abdominal aortic aneurysm TECHNICAL DOCUMENTATION: JOB ID: [id number] Quality ID # 436: Final reports with documentation of one or more dose reduction techniques (e.g., Au tomated exposure control, adjustment of the mA and/or kV according to patient size, use of iterative reconstruction technique) 2010 [employer]- All Rights Reserved Reading location - IP/workstation name: [email or web address]
== END ==
LOC: RAD 08:55
PROVIDERS: ATTEND Internal Medicine
DX: C34.31 Malignant neoplasm of lower lobe, right bronchus or lung (principal); J44.9 Chronic obstructive pulmonary disease, unspecified
CPT/HCPCS: 71250; 74176

== ENCOUNTER → 2019-07-14 | Outpatient (CLI) | payer MEDICARE ==
--- NOTE | 2019-07-14 11:50 | RADIOLOGY REPORT (SQ) ---
EXAM DESCRIPTION: CT ABD/PELVIS NO ORAL OR IV IMAGES COMPLETED DATE/TIME: 07/14/2019 10:13 am REASON FOR STUDY: LUNG CANCER C34.31 MALIGNANT NEOPLASM OF LOWER LOBE, RIGHT BRONCHUS OR L COMPARISON: 01/06/2019 TECHNIQUE: CT scan of the abdomen and pelvis performed without intravenous or oral contrast. Images reviewed with lung, soft tissue, and bone windows. Reconstructed coronal and sagittal MPR images revi ewed. All images stored on PACS. All CT scanners at this facility use dose modulation, iterative reconstruction, and/or weight based d osing when appropriate to reduce radiation dose to as low as reasonably achievable (ALARA). [facility]: Dose Right [facility]: CareDose [facility]: Dose Right [facility]: Teradose 4D [facility]: [employer] RADIATION DOSE: CT Rad equipment meets quality standard of care and radiation dose reduction techniq ues were employed. CTDIvol: 4.5 - 4.6 mGy. DLP: 400 mGy-cm. LIMITATIONS: None. FINDINGS: LOWER CHEST: Please see CT chest report. NON-CONTRASTED LIVER, SPLEEN, ADRENALS: Mild thickening of the adrenal glands. Evaluation limited b y lack of IV contrast. PANCREAS: No masses. No peripancreatic inflammatory changes. GALLBLADDER: No identified stones by CT criteria. No inflammatory changes to suggest cholecystitis. RIGHT KIDNEY AND URETER: Stable nonobstructing multiple renal calculi versus vascular calcifications . Assessment limited by lack of IV contrast. LEFT KIDNEY AND URETER: Incomplete duplication of the left kidney. Stable nonobstructing multiple r enal calculate versus vascular calcifications. Assessment limited by lack of IV contrast. AORTA AND RETROPERITONEUM: Atherosclerotic changes involving the abdominal aorta and branch vessels. Abdominal spupt-dw-qblhs endovascular stent graft related to prior aneurysm repair. No retroperiton eal masses or adenopathy. BOWEL AND PERITONEAL CAVITY: No obvious masses or inflammatory changes. No free fluid. APPENDIX: Normal. PELVIS, BLADDER, AND ABDOMINAL WALL: Stable 2.4 cm complex right adnexal mass, axial image 16, serie s 3. No free fluid. Bladder normal. BONES: Partially visualized right paravertebral soft tissue mass with adjacent osseous destruction o f the vertebral bodies and posterior elements, involving the visualized lower thoracic spine. . It extends into the foramina and abuts and slightly displaces the thoracic cord to the left of the midli ne. The mass also appears to abut the adjacent right paraspinal musculature. Considerations for the se findings include metastatic disease. OTHER: No other significant finding. IMPRESSION: 1. Partially visualized right paravertebral soft tissue mass with adjacent osseous dest ruction of the vertebral bodies and posterior elements, involving the visualized lower thoracic spine as above. 2. Mild thickening of the adrenal glands. 3. Stable appearing complex right adnexal mass. Further evaluation with pelvic ultrasound. 4. Prior abdominal aorto -bi-iliac endovascular stent graft related to aneurysm repair. 5. Additional stable findings as above. COMMENT: Quality ID # 436: Final reports with documentation of one or more dose reduction techniques (e.g., Automated exposure control, adjustment of the mA and/or kV according to patient size, use of iterative reconstruction technique) TECHNICAL DOCUMENTATION: JOB ID: [id number] 2010 [email or web address]- All Rights Reserved Reading location - IP/workstation name: [email or web address]
--- NOTE | 2019-07-14 11:55 | RADIOLOGY REPORT (SQ) ---
EXAM DESCRIPTION: CT CHEST WITHOUT IMAGES COMPLETED DATE/TIME: 07/14/2019 10:43 am REASON FOR STUDY: LUNG CANCER C34.31 MALIGNANT NEOPLASM OF LOWER LOBE, RIGHT BRONCHUS OR L COMPARISON: CT of the chest without contrast from 01/06/2019. TECHNIQUE: CT scan performed of the chest without intravenous contrast. Images reviewed with lung, soft tissue and bone windows. Reconstructed coronal and sagittal MPR images reviewed. All images st ored on PACS. All CT scanners at this facility use dose modulation, iterative reconstruction, and/or weight based d osing when appropriate to reduce radiation dose to as low as reasonably achievable (ALARA). [facility]: Dose Right [facility]: CareDose [facility]: Dose Right [facility]: Teradose 4D [facility]: [employer] LIMITATIONS: No technical limitations. FINDINGS: LUNGS AND PLEURA: Unchanged postoperative findings in the right middle lobe consistent wit h prior wedge resection. The moderate to severe upper lobe predominant centrilobular emphysema in th e area of pleural thickening along the posteromedial aspect of the right hemithorax are unchanged. T here is no acute consolidation, ground-glass opacification or pleural effusion. LUNG NODULES: The solid 3 mm nodule in the left upper lobe (image 28 of series 6) is new, the solid 3 mm nodule in the lingula that abuts the interlobar fissure (image 70 of series 6) is new, the calci fied granuloma in the right upper lobe (image 80 of series 6) is unchanged, the solid 8 mm nodule in the right lower lobe (image 100 of series 6) is new, the solid 12 mm nodule in the right lower lobe ( image 6 of series 6) has increased in size, and the solid 3 mm nodule in the superior segment of the left lower lobe (image 59 of series 6) has increased in size. HILAR AND MEDIASTINAL STRUCTURES: Evaluation of the bulmaro for adenopathy is limited due to the absence of intravenous contrast. There are stable calcified nonenlarged right lower paratracheal and right hilar lymph nodes. HEART AND VASCULAR STRUCTURES: Severe atherosclerotic calcification of the coronary arteries. The as cending thoracic aorta measures 4.2 cm in transverse diameter. There is a trace pericardial effusion . UPPER ABDOMEN: Refer to the separate report of the CT of the abdomen. THYROID AND OTHER SOFT TISSUES: No adenopathy or mass. BONES: Osteolytic paraspinal mass that involves the transverse processes, pedicles and vertebral bod ies of the T10, T11 and T12 vertebra and extends into the epidural space/ neuroforamina on the right. HARDWARE: None in the chest. OTHER: No other findings. IMPRESSION: 1. 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 2. New and enlarging bilateral pulmonary nodules as detailed above. The above findings are concerning for recurrence of malignant disease. TECHNICAL DOCUMENTATION: JOB ID: [id number] Quality ID # [id number]: Final reports with documentation of one or more dose reduction techniques (e.g., Au tomated exposure control, adjustment of the mA and/or kV according to patient size, use of iterative reconstruction technique) 2010 [employer]- All Rights Reserved Reading location - IP/workstation name: [email or web address]
== END ==
LOC: RAD 09:47
PROVIDERS: ATTEND Internal Medicine
DX: C34.31 Malignant neoplasm of lower lobe, right bronchus or lung (principal)
CPT/HCPCS: 71250; 74176

== ENCOUNTER → 2019-07-21 | Outpatient (CLI) | payer MEDICARE ==
--- NOTE | 2019-07-22 09:49 | RADIOLOGY REPORT (SQ) ---
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 Coronal T2/ HASTE imaging. LIMITATIONS: None. FINDINGS: SEGMENTATION: No transitional anatomy. The lowest well-developed disc space is labeled L5- S1. ALIGNMENT: Mild convex leftward lumbar curvature. Mild grade 1 anterolisthesis of L4 over L5 VERTEBRAE: Intact. BONE MARROW: Advanced mixed fatty and sclerotic vertebral body endplate change at L3-4 and L4-5 DISC SIGNAL: Diffuse decreased T2 weighted intervertebral disc signal POSTERIOR ELEMENTS: Diffuse facet arthropathy. No gross spondylolysis HARDWARE: None in the spine. CORD AND CONUS: Normal in size and signal intensity. Conus at the L1-2 level. SOFT TISSUES: Post aortic stent graft for abdominal aortic aneurysm repair, incompletely included in the field of view T12-L1: No central or foraminal stenosis. L1-L2: No central or foraminal stenosis. Mild bilateral facet hypertrophy L2-L3: No central or foraminal stenosis. Moderate bilateral facet hypertrophy L3-L4: Mild to moderate central canal stenosis results from broad diffuse posterior disc bulging and bulky bilateral facet and ligament hypertrophy. There is narrowing of thecal sac and partial effacem ent of the CSF around the lumbar nerve roots on axial image 18. Moderate bilateral foraminal narrowi ng is present without definite exit L3 nerve root impingement. L4-L5: Broad diffuse posterior disc bulge and bony spurring, moderate bilateral facet and ligament hy pertrophy causes [id number] central canal narrowing, with flattening of the thecal sac into a t riangular shape and partial effacement of the CSF around the lumbar nerve roots best shown on axial i mage 24. There is moderate bilateral foraminal narrowing without definite exit L4 nerve root impinge ment L5-S1: Bulky bilateral facet hypertrophy and mild diffuse posterior disc bulging. No central stenosi s. Moderate bilateral foraminal narrowing SACRUM: Visualized upper sacrum intact. OTHER: No other significant findings. IMPRESSION: Degenerative changes most pronounced at L3-4 and L4-5 as above. No acute lumbar wedge compression deformity or sacral insufficiency fracture TECHNICAL DOCUMENTATION: JOB ID: [id number] 2010 [employer]- All Rights Reserved Reading location - IP/workstation name: [email or web address]
== END ==
LOC: RAD 15:25
PROVIDERS: ATTEND Internal Medicine
DX: C34.31 Malignant neoplasm of lower lobe, right bronchus or lung (principal); M51.37 Other intervertebral disc degeneration, lumbosacral region; M48.061 Spinal stenosis, lumbar region without neurogenic claudication
CPT/HCPCS: 72148; 82565

== ENCOUNTER → 2019-10-23 | Outpatient (CLI) | payer MEDICARE ==
--- OUTSIDE RECORDS SUMMARY | 2019-12-19 15:39 | XMS REPORT ---
:1936 [facility] [address] [place] [address] Care Team Providers Name Role Phone Laurence Vicente Primary Care Physician Unavailable Jojo PAGE Attending Clinician Unavailable Kenya Stroud Attending Clinician Unavailable Onesimo PAGE Attending Clinician Unavailable Laurence Vicente MD Attending Clinician Unavailable DO Tammy Echols Attending Clinician Unavailable DO Tammy Echols Admitting Clinician Unavailable Allergies, Adverse Reactions, Alerts Allergy Name Allergy Status Severity Reaction(s) Onset Inactive Treat ing Comments Type Date Date Clinician Lisinopril Lisinopril Active TABS TABS Medications Ordered Filled Start Stop Current Ordering Indication Dosage Frequency Signature Comments Components Medication Medication Date Date Medication? Clinician (SIG) Name Name Metoprolol 2019-02 Yes Anthony Dang QD Metoprolol Succinate 02-13 Jules Succinate ER 50 MG 10:03: ER 50 MG Oral Tablet 08 Oral Extended Tablet Release 24 Extended Hour Release 24 Hour TAKE 1/2 TABLET DAILY. Quantity: 30 Refills: 1 Anthony Vicente MD Start : 15-Dec-2019 Active Atorvastati 2019-02 Yes Atorvastat n Calcium 1-05 in Calcium 40 MG Oral 00:00: 40 MG Oral Tablet 00 Tablet Refills: 0 Start : 11-Dec-2019 Active fentaNYL 25 2019-02 Yes fentaNYL MCG/HR 1-05 25 MCG/HR Transdermal 00:00: Transderma Patch 72 00 l Patch 72 Hour Hour Refills: 0 Start : 11-Dec-2019 Active Amitiza 24 No Anthony Dang Q0.5D Amitiza 24 MCG Oral 8-24 Towarnicky MCG Oral Capsule 13:27: Capsule 46 take 1 capsule by mouth twice a day with food Quantity: 60 Refills: 0 Anthony Vicente MD Start : 0Active Amitiza 24 2019-0 No Anthony Dang Q0.5D Amitiza 24 MCG Oral 8-24 Georgiaarnicky MCG Oral Capsule 13:27: Capsule 46 take 1 capsule by mouth twice a day with food Quantity: 60 Refills: 0 Anthony Vicente MD Start : 0Active Amitiza 24 2019-0 No Anthony Dang Q0.5D Amitiza 24 MCG Oral 7-30 Towarnicky MCG Oral Capsule 00:00: Capsule 00 TAKE 1 CAPSULE TWICE DAILY WITH FOOD. Quantity: 60 Refills: 0 Anthony Vicente MD Start : 0Active fentaNYL 2019-0 Yes 1 6-18 00:00: 00 HYDROcodone 2019-0 Yes 1 -Acetaminop 6-11 hen 00:00: 00 hydroCHLORO 2019-0 Yes Anthony HernandezHLO R thiazide 25 5-07 Jules Othiazide MG Oral 11:08: 25 MG Oral Tablet 33 Tablet TAKE 1 TABLET BY MOUTH EVERY DAY IN THE MORNING Quantity: 90 Refills: 3 Anthony Vicente MD Start : 12-Jun-2019 Active Atorvastati 2019-0 No Anthony Dang QD Atorvasta t n Calcium 3- Jules maravilla Calcium 40 MG Oral 09:34: 40 MG Oral Tablet 11 Tablet TAKE 1 TABLET BY MOUTH EVERY DAY Quantity: 90 Refills: 3 Anthony Vicente MD Start : 0Active HYDROcodone 2019-0 Yes Anthony Dang HYDROcodo n -Acetaminop -26 Jules e-Acetami n hen 5-325 00:00: ophen MG Oral 00 5-325 MG Tablet Oral Tablet Take 1 by mouth 4 times daily as needed for lung cancer/bon e pain Quantity: 40 Refills: 0 Anthony Vicente MD Start : 0Active Metoprolol 2018-02 No Anthony Dang QD Metoprolol Succinate -26 Jules Succinate ER 50 MG 11:28: ER 50 MG Oral Tablet 35 Oral Extended Tablet Release 24 Extended Hour Release 24 Hour TAKE 1/2 TABLET DAILY. Quantity: 30 Refills: 5 Anthony Vicente MD Start : 9Active Gabapentin No Kelvin Anne0.3333D Gabapentin 600 MG Oral 6- Onesimo PAGE 600 MG Tablet 00:00: Oral 00 Tablet TAKE 1 TABLET 3 TIMES DAILY. Quantity: 90 Refills: 3 Kelvin Echols MD Start : 9Active Gabapentin No Kelvin Q0.3333D Gabapentin 600 MG Oral 6- Onesimo PAGE 600 MG Tablet 00:00: Oral 00 Tablet TAKE 1 TABLET 3 TIMES DAILY. Quantity: 90 Refills: 3 Kelvin Echols MD Start : 9Active Gabapentin Yes Kelvin Q0.3333D Gabapentin 600 MG Oral 6 Onesimo PAGE 600 MG Tablet 00:00: Oral 00 Tablet TAKE 1 TABLET 3 TIMES DAILY. Quantity: 270 Refills: 3 Kelvin Echols MD Start : 9Active Linzess 145 No Anthony R Linzess MCG Oral 4-23 Towarnicky 145 MCG Capsule 00:00: MD Oral 00 Capsule one tablet daily Quantity: 30 Refills: 3 Anthony Vicente MD Start : 9Active Linzess 145 Yes Anthony R Linzess MCG Oral -23 Towarnicky 145 MCG Capsule 00:00: MD Oral 00 Capsule one tablet daily Quantity: 30 Refills: 3 Anthony Vicente MD Start : 9Active Cilostazol No Anthony 1 Q0.5D Cilostazol 100 MG Oral - Coco 100 MG Tablet 00:00: M.D. Oral 00 Tablet TAKE 1 TABLET TWICE DAILY Quantity: 60 Refills: 3 Anthony Sepulveda M.D. Start : 9Active Aspirin 81 2017- No 1 QD Aspirin 81 MG Oral 5-03 MG Oral Tablet 00:00: Tablet Delayed 00 Delayed Release Release TAKE 1 TABLET DAILY. Refills: 0 Start : 07-Jun-2017 Active Duragesic-2 2017-0 2020- No 1 5 04-12 00:00: 10:25 00 :59 PredniSONE 2018-0 Yes 03-15 00:00: 00 Sodium 2018-0 No 30mL Sodium Chloride 1-26 Chloride 00:00: 00 Keytruda 2017-0 2018- No 200mg (pembrolizu -02 03- mab) 00:00: 00:00 00 :00 Duragesic-1 2018-0 2018- No 1 2 1-12 04-26 00:00: 14:02 00 :50 Tylenol 2016- Yes Tylenol Extra 1-13 Extra Strength 00:00: Strength 500 MG Oral 00 500 MG Tablet Oral Tablet TAKE 1 TABLET EVERY 4 TO 6 HOURS NEEDED. Refills: 0 Start : 7Active Dexamethaso 2016-02 No 12mg Dexamethas ne 1-07 one 00:00: 00 Palonosetro 2016-02 No .25mg Palonosetr n HCl 1-07 on HCl 00:00: 00 Abraxane 2016-02 No 154mg Abraxane 1-07 00:00: 00 Sodium 2016-02 No 50mL Sodium Chloride 1-07 Chloride 00:00: 00 Dexamethaso 2016-02 No 12mg Dexamethas ne 0-31 one 00:00: 00 Sodium 2016-02 No 75mL Sodium Chloride 0-31 Chloride 00:00: 00 Palonosetro 2016-02 No .25mg Palonosetr n HCl 0-31 on HCl 00:00: 00 Abraxane 2016-02 No 156mg Abraxane 0-31 00:00: 00 Dexamethaso 2016-02 2017- No 12mg ne 0-31 11-07 00:00: 00:00 00 :00 Palonosetro 2016-02 No .25mg Palonosetr n HCl 0-17 on HCl 00:00: 00 Dexamethaso 2016-02 No 10mg Dexamethas ne Sodium 0-17 one Sodium Phosphate 00:00: Phosphate 00 Sodium 2016-02 No 70mL Sodium Chloride 0-17 Chloride 00:00: 00 Abraxane 2016-02 No 182mg Abraxane 0-17 00:00: 00 Palonosetro 2016-02 No .25mg Palonosetr n HCl 0-10 on HCl 00:00: 00 Dexamethaso 2016-02 No 10mg Dexamethas ne Sodium 0-10 one Sodium Phosphate 00:00: Phosphate 00 Sodium 2016-02 No 60mL Sodium Chloride 0-10 Chloride 00:00: 00 Abraxane 2016-02 No 182mg Abraxane 0-10 00:00: 00 Palonosetro 2016-02 No .25mg Palonosetr n HCl 0-03 on HCl 00:00: 00 Dexamethaso 2017-1 No 10mg Dexamethas ne Sodium 0-03 one Sodium Phosphate 00:00: Phosphate 00 Sodium 2017-1 No 80mL Sodium Chloride 0-03 Chloride 00:00: 00 Abraxane 2017-1 No 183mg Abraxane 0-03 00:00: 00 Palonosetro 2017-0 No .25mg Palonosetr n HCl 9-19 on HCl 00:00: 00 Dexamethaso 2017-0 No 10mg Dexamethas ne Sodium 9-19 one Sodium Phosphate 00:00: Phosphate 00 Sodium 2017-0 No 70mL Sodium Chloride 9-19 Chloride 00:00: 00 Abraxane 2017-0 No 186mg Abraxane 9-19 00:00: 00 Coumadin 2017-0 2017- No 1 9-13 12-11 00:00: 14:29 00 :46 Hydration 2017-0 2017- No 1000mL 1000mL NS 9-12 09-12 00:00: 00:00 00 :00 Palonosetro 2017-0 No .25mg Palonosetr n HCl 9-05 on HCl 00:00: 00 Dexamethaso 2017-0 No 10mg Dexamethas ne Sodium 9-05 one Sodium Phosphate 00:00: Phosphate 00 Sodium 2017-0 No 70mL Sodium Chloride 9-05 Chloride 00:00: 00 Abraxane 2017-0 No 187mg Abraxane 9-05 00:00: 00 EMLA 2017-0 2018- No 1 9-05 04-26 00:00: 14:02 00 :01 Palonosetro 2017-0 No .25mg Palonosetr n HCl 8-29 on HCl 00:00: 00 Dexamethaso 2017-0 No 10mg Dexamethas ne Sodium 8-29 one Sodium Phosphate 00:00: Phosphate 00 Sodium 2017-0 No 60mL Sodium Chloride 8-29 Chloride 00:00: 00 Abraxane 2017-0 No 187mg Abraxane 8-29 00:00: 00 Palonosetro 2017-0 No .25mg Palonosetr n HCl 8-15 on HCl 00:00: 00 Dexamethaso 2017-0 No 10mg Dexamethas ne Sodium 8-15 one Sodium Phosphate 00:00: Phosphate 00 Sodium 2017-0 No 90mL Sodium Chloride 8-15 Chloride 00:00: 00 Abraxane 2017-0 No 188mg Abraxane 8-15 00:00: 00 Lomotil 2017-0 Yes 1 815 00:00: 00 Palonosetro 20170 No .25mg Palonosetr n HCl 8-08 on HCl 00:00: 00 Dexamethaso 20170 No 10mg Dexamethas ne Sodium 8-08 one Sodium Phosphate 00:00: Phosphate 00 Sodium 20170 No 70mL Sodium Chloride 8-08 Chloride 00:00: 00 Abraxane 20170 No 190mg Abraxane 808 00:00: 00 Warfarin 20170 2017- No 1 Sodium 8-08 01-15 00:00: 14:29 00 :46 Sodium 20170 No 65mL Sodium Chloride 8- Chloride 00:00: 00 Ondansetron 0 2018- No 1 HCl 09-05 00:00: 14:02 00 :01 Promethazin 0 2018- No 1 e HCl 09-05 00:00: 14:02 00 :01 Sodium 2017-0 2018- No 30mL Chloride 09-05 00:00: 00:00 00 :00 Abraxane 2017-0 2017- No 188mg Abraxane 812-12 00:00: 00:00 00 :00 Carboplatin 2017-0 2017- No 124mg 812-12 00:00: 00:00 00 :00 Palonosetro 2017-0 2017- No .25mg Palonosetr n HCl 09-05 on HCl 00:00: 00:00 00 :00 Dexamethaso 2016-0 2017- No 10mg Dexamethas ne Sodium 09-05 one Sodium Phosphate 00:00: 00:00 Phosphate 00 :00 OxyCODONE 20170 Yes 1 HCl 718 00:00: 00 Aspirin Yes 1 cloNIDine Yes 1 Gabapentin Yes 1 Linzess Yes 1 Micardis Yes 1 HCT NIFEdipine Yes 1 ER Oxycodone-A Yes 1 cetaminophe n Protonix Yes 1 Toprol XL Yes 1 Aspirin No 1 Clopidogrel 2017- No 1 Bisulfate 01-15 14:26 :51 Coumadin 2017- No 1 01-15 14:26 :56 Diovan HCT 2017- No 1 01-15 14:27 :09 Flaxseed 2017- No 1 (Linseed) 01-15 14:27 :01 Lipitor 2016- No 01-15 14:32 :10 Omeprazole 2016- No 01-15 14:27 :13 Vitamin D 2016- No (Ergocalcif 01-15 corinna) 14:27 :25 Problems Condition Condition Condition Status Onset Resolution Last Treatin g Comments Name Details Category Date Date Treatment Clinician Date Anemia due Anemia due Diagnosis active to to 03-02 chemotherap chemotherap 00:00: y y 00 Anemia Anemia Diagnosis active 03-02 00:00: 00 Dehydration Dehydration Diagnosis active 10-17 00:00: 00 Patient Patient Diagnosis active encounter encounter 09-05 status status 00:00: 00 Drug Drug Diagnosis active therapy therapy 07-31 finding finding 00:00: 00 Malignant Malignant Problem Active neoplasm of neoplasm of lower lobe, lower lobe, right right bronchus or bronchus or lung lung Gait Gait Problem Active disturbance disturbance Biliary Biliary Problem Active dyskinesia dyskinesia Complicatio Complicatio Problem Active n of n of chemotherap chemotherap y, sequela y, sequela Duodenitis Duodenitis Problem Active Numbness in Numbness in Problem Active left leg left leg PVD PVD Problem Active (peripheral (peripheral vascular vascular disease) disease) Traumatic Traumatic Problem Active open wound open wound of right of right lower leg, lower leg, sequela sequela Acute Acute Problem Active bilateral bilateral back pain, back pain, unspecified unspecified back back location location Hypertensio Hypertensio Problem Active n n Gastritis Gastritis Problem Active Abdominal Abdominal Problem Active pain, RUQ pain, RUQ (right (right upper upper quadrant) quadrant) Aortic Aortic Problem Active stenosis stenosis COPD COPD Problem Active (chronic (chronic obstructive obstructive pulmonary pulmonary disease) disease) H/O H/O Problem Active endovascula 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 Malignant Malignant Problem Inactiv neoplasm of neoplasm of e lower lobe, lower lobe, right right bronchus or bronchus or lung lung Above-knee Above-knee Problem Active amputation amputation of right of right lower lower extremity extremity with with complicatio complicatio n, sequela n, sequela Bone pain Bone pain Problem Active Flu-like Flu-like Problem Active symptoms symptoms CAD CAD Problem Active (coronary (coronary artery artery disease) disease) AAA AAA Problem Active (abdominal (abdominal aortic aortic aneurysm) aneurysm) Diabetes Diabetes Problem Active mellitus, mellitus, 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 infection infection Secondary Secondary Problem Active 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, of lung, unspecified unspecified laterality laterality Metastasis Metastasis Problem Active to spinal to spinal column column Confusional Confusional Diagnosis active state state Primary Primary Diagnosis active malignant malignant neoplasm of neoplasm of right lower right lower lobe of lobe of lung lung Procedures Procedure Date / Time Performed Performing Clinician Jazmin la History of Lower extremity 2017-05-15 00:00:00 amputation above knee right BKA 2017-02-05 00:00:00 colonoscopy 2014-02-05 00:00:00 Knee Surgery 2010-10-06 00:00:00 Cardiac Stent 2004-02-06 00:00:00 History of Femoropopliteal bypass History of Aortic aneurysm repair History of Coronary artery stent placement Results Test Description Test Time Test Comments Text Results Atomic Results Result Comments Creatinine 2019-07-17 14:26:00 Test Item Value Reference Range Comments Creatinine (test code = Creatinine) 0.8600 mg/dL 0.5700-1.000 0 Cr Clearance (Est) (test code = Cr Clearance 54.4600 75. 0000-115.0000 (Est)) Glucose (test code = Glucose) 105.0000 mg/dL 65.0000-99.0000 BUN (test code = BUN) 3.0000 mg/dL 8.0000-27.0000 eGFR Wqe-Djezpln-Cshqjwbk (test code = eGFR 63.0000 Veq-Lyacxml-Bcqpaqlm) eGFR -[place] Citizen (test code = eGFR 73.0000 -[place] Citizen) BUN/Creat Ratio (test code = BUN/Creat Ratio) 3.0000 12 .0000-28.0000 Sodium (test code = Sodium) 126.0000 mmol/L 134.0000-144.0000 Potassium (test code = Potassium) 2.9000 mmol/L 3.5000-5.2000 Chloride (test code = Chloride) 83.0000 mmol/L 96.0000-106.0000 CO2 (test code = CO2) 28.0000 mmol/L 20.0000-29.0000 Calcium (test code = Calcium) 10.0000 mg/dL 8.7000-10.3000 Protein, Total (test code = Protein, Total) 6.8000 g/dL 6.00 00-8.5000 Albumin (test code = Albumin) 4.2000 g/dL 3.6000-4.6000 Globulin (test code = Globulin) 2.6000 g/dL 1.5000-4.5000 A/G Ratio (test code = A/G Ratio) 1.6000 1.2000-2.2000 Bilirubin, Total (test code = Bilirubin, Total) 0.7000 mg/dL 0.0000-1.2000 Alkaline Phosphatase (test code = Alkaline 119.0000 39.00 00-117.0000 Phosphatase) AST (SGOT) (test code = AST (SGOT)) 17.0000 0.0000-40.00 00 ALT (SGPT) (test code = ALT (SGPT)) 11.0000 0.0000-32.00 00 Iron, Total (test code = Iron, Total) 66.0000 27.0000-13 9.0000 TIBC (test code = TIBC) 200.0000 250.0000-450.0000 UIBC (test code = UIBC) 134.0000 118.0000-369.0000 % Iron Saturation (test code = % Iron Saturation) 33.0000 % 15.0000-55.0000 T4, Free (test code = T4, Free) 1.5500 ng/dL 0.8200-1.7700 TSH (test code = TSH) 1.8800 0.4500-4.5000 Ferritin (test code = Ferritin) 679.0000 ng/mL 15.0000-150.0000 T3, Free (test code = T3, Free) 3.5000 pg/mL 2.0000-4.4000 [id number] 10:46:00 Test Item Value Reference Range Comments WBC (test code = WBC) 4.8000 4.0000-10.0000 Lymphocytes % (test code = Lymphocytes %) 31.0000 % 22.400 0-43.6000 MID% (test code = MID%) 7.4000 % 1.2000-11.2000 Neutrophils % (test code = Neutrophils %) 61.6000 % 48.900 0-69.9000 Lymphocytes (test code = Lymphocytes) 1.5000 1.2000-3.2 000 MID (test code = MID) 0.3000 0.1000-1.1000 Neutrophils (test code = Neutrophils) 3.0000 1.5000-6.7 000 RBC (test code = RBC) 4.6300 3.7000-4.9000 HGB (test code = HGB) 13.9000 g/dL 11.2000-18.0000 HCT (test code = HCT) 41.3000 % 34.0000-44.0000 MCV (test code = MCV) 89.2000 fL 80.0000-94.0000 MCH (test code = MCH) 30.1000 pg 27.0000-34.0000 MCHC (test code = MCHC) 33.7000 g/dL 31.5000-36.0000 RDW (test code = RDW) 14.9000 11.0000-18.0000 PLT (test code = PLT) 278.0000 140.0000-440.0000 MPV (test code = MPV) 7.0000 fL 6.8000-10.6000 [id number] 09:13:00 Test Item Value Reference Range Comments Creatinine (test code = Creatinine) 1.1000 mg/dL 0.5000-1.200 0 Cr Clearance (Est) (test code = Cr 43.3700 75.0000-115.0 000 Clearance (Est)) Glucose (test code = Glucose) 99.0000 mg/dL 70.0000-118.0000 BUN (test code = BUN) 8.0000 mg/dL 7.0000-22.0000 Sodium (test code = Sodium) 135.0000 mmol/L 128.0000-145.0000 Potassium (test code = Potassium) 3.4000 mmol/L 3.6000-5.1000 Chloride (test code = Chloride) 97.0000 mmol/L 96.0000-108.0000 CO2 (test code = CO2) 30.0000 mmol/L 18.0000-33.0000 Calcium (test code = Calcium) 9.2100 mg/dL 8.0000-10.3000 Alkaline Phosphatase (test code = Alkaline 121.0000 42.00 00-141.0000 Phosphatase) ALT (SGPT) (test code = ALT (SGPT)) 7.0000 10.0000-47.0 000 AST (SGOT) (test code = AST (SGOT)) 11.0000 11.0000-37.0 000 Bilirubin, Total (test code = Bilirubin, 0.5000 mg/dL 0.0000- 1.6000 Total) Albumin (test code = Albumin) 4.0000 g/dL 3.5000-5.5000 Protein, Total (test code = Protein, 6.8000 g/dL 6.4000-8.10 00 Total) eGFR -[place] Citizen (test code = eGFR 58.0000 60.0000- 200.0000 -[place] Citizen) eGFR Bim-Hqlonux-Zndppscr (test code = 48.0000 60.0000-2 00.0000 eGFR Cpg-Keqinri-Uyovhgwb) [id number] 09:12:00 Test Item Value Reference Range Comments WBC (test code = WBC) 5.0000 4.0000-10.0000 Lymphocytes % (test code = Lymphocytes %) 31.3000 % 22.400 0-43.6000 MID% (test code = MID%) 7.1000 % .1999- Neutrophils % (test code = Neutrophils %) 61.6000 % 48.900 0-69.9000 Lymphocytes (test code = Lymphocytes) 1.5000 1.2000-3.2 000 MID (test code = MID) 0.4000 0.1000-1.1000 Neutrophils (test code = Neutrophils) 3.1000 1.5000-6.7 000 RBC (test code = RBC) 4.7900 3.7000-4.9000 HGB (test code = HGB) 12.9000 g/dL 11.1999-18.0000 HCT (test code = HCT) 42.3000 % 34.0000-44.0000 MCV (test code = MCV) 88.1000 fL 80.0000-94.0000 MCH (test code = MCH) 27.0000 pg 27.0000-34.0000 MCHC (test code = MCHC) 30.6000 g/dL 31.5000-36.0000 RDW (test code = RDW) 15.1999 11.0000-18.0000 PLT (test code = PLT) 265.0000 140.0000-440.0000 MPV (test code = MPV) 7.6000 fL 6.8000-10.6000 [id number] 15:17:00 Test Item Value Reference Range Comments WBC (test code = WBC) 4.4000 4.0000-10.0000 Lymphocytes % (test code = Lymphocytes %) 44.8000 % 22.400 0-43.6000 MID% (test code = MID%) 7.6000 % .1999- Neutrophils % (test code = Neutrophils %) 47.6000 % 48.900 0-69.9000 Lymphocytes (test code = Lymphocytes) 2.0000 1.2000-3.2 000 MID (test code = MID) 0.3000 0.1000-1.1000 Neutrophils (test code = Neutrophils) 2.1000 1.5000-6.7 000 RBC (test code = RBC) 3.6700 3.7000-4.9000 HGB (test code = HGB) 11.3000 g/dL 11.2000-18.0000 HCT (test code = HCT) 32.0000 % 34.0000-44.0000 MCV (test code = MCV) 87.4000 fL 80.0000-94.0000 MCH (test code = MCH) 30.9000 pg 27.0000-34.0000 MCHC (test code = MCHC) 35.4000 g/dL 31.5000-36.0000 RDW (test code = RDW) 14.6000 11.0000-18.0000 PLT (test code = PLT) 155.0000 140.0000-440.0000 MPV (test code = MPV) 7.0000 fL 6.8000-10.6000 [id number] 15:17:00 Test Item Value Reference Range Comments Creatinine (test code = Creatinine) 1.3000 mg/dL 0.5000-1.200 0 Cr Clearance (Est) (test code = Cr 35.4700 75.0000-115.0 000 Clearance (Est)) Glucose (test code = Glucose) 140.0000 mg/dL 70.0000-118.0000 BUN (test code = BUN) 13.0000 mg/dL 7.0000-22.0000 Sodium (test code = Sodium) 136.0000 mmol/L 128.0000-145.0000 Potassium (test code = Potassium) 3.6000 mmol/L 3.6000-5.1000 Chloride (test code = Chloride) 98.0000 mmol/L 96.0000-108.0000 CO2 (test code = CO2) 29.0000 mmol/L 18.0000-33.0000 Calcium (test code = Calcium) 8.5000 mg/dL 8.0000-10.3000 Alkaline Phosphatase (test code = Alkaline 88.0000 42.00 00-141.0000 Phosphatase) ALT (SGPT) (test code = ALT (SGPT)) 6.0000 10.0000-47.0 000 AST (SGOT) (test code = AST (SGOT)) 10.0000 11.0000-37.0 000 Bilirubin, Total (test code = Bilirubin, 0.2000 mg/dL 0.0000- 1.6000 Total) Albumin (test code = Albumin) 3.8000 g/dL 3.5000-5.5000 Protein, Total (test code = Protein, 6.3000 g/dL 6.4000-8.10 00 Total) eGFR -[place] Citizen (test code = eGFR 48.0000 60.0000- 200.0000 -[place] Citizen) eGFR Wye-Kiuuqtb-Qcetuyfk (test code = 39.0000 60.0000-2 00.0000 eGFR Vgs-Vwdzwuz-Oolzlctv) [id number] 14:18:00 Test Item Value Reference Range Comments WBC (test code = WBC) 4.3000 4.0000-10.0000 Lymphocytes % (test code = Lymphocytes %) 27.0000 % 22.400 0-43.6000 MID% (test code = MID%) 6.6000 % 1.2000-11.2000 Neutrophils % (test code = Neutrophils %) 66.4000 % 48.900 0-69.9000 Lymphocytes (test code = Lymphocytes) 1.1000 1.2000-3.2 000 MID (test code = MID) 0.3000 0.1000-1.1000 Neutrophils (test code = Neutrophils) 2.9000 1.5000-6.7 000 RBC (test code = RBC) 3.0600 3.7000-4.9000 HGB (test code = HGB) 10.5000 g/dL 11.2000-18.0000 HCT (test code = HCT) 26.7000 % 34.0000-44.0000 MCV (test code = MCV) 87.1000 fL 80.0000-94.0000 MCH (test code = MCH) 34.4000 pg 27.0000-34.0000 MCHC (test code = MCHC) 39.4000 g/dL 31.5000-36.0000 RDW (test code = RDW) 15.2000 11.0000-18.0000 PLT (test code = PLT) 167.0000 140.0000-440.0000 MPV (test code = MPV) 7.6000 fL 6.8000-10.6000 [id number] 14:18:00 Test Item Value Reference Range Comments Creatinine (test code = Creatinine) 1.1000 mg/dL 0.5000-1.200 0 Cr Clearance (Est) (test code = Cr 41.9200 75.0000-115.0 000 Clearance (Est)) Glucose (test code = Glucose) 120.0000 mg/dL 70.0000-118.0000 BUN (test code = BUN) 13.0000 mg/dL 7.0000-22.0000 Sodium (test code = Sodium) 140.0000 mmol/L 128.0000-145.0000 Potassium (test code = Potassium) 4.2000 mmol/L 3.6000-5.1000 Chloride (test code = Chloride) 100.0000 mmol/L 96.0000-108.0000 CO2 (test code = CO2) 27.0000 mmol/L 18.0000-33.0000 Calcium (test code = Calcium) 8.6600 mg/dL 8.0000-10.3000 Alkaline Phosphatase (test code = Alkaline 101.0000 42.00 00-141.0000 Phosphatase) ALT (SGPT) (test code = ALT (SGPT)) 13.0000 10.0000-47.0 000 AST (SGOT) (test code = AST (SGOT)) 18.0000 11.0000-37.0 000 Bilirubin, Total (test code = Bilirubin, 0.4000 mg/dL 0.0000- 1.6000 Total) Albumin (test code = Albumin) 3.6000 g/dL 3.5000-5.5000 Protein, Total (test code = Protein, 6.2000 g/dL 6.4000-8.10 00 Total) eGFR -[place] Citizen (test code = eGFR 58.0000 60.0000- 200.0000 -[place] Citizen) eGFR Zbs-Bnhwzio-Zekushft (test code = 48.0000 60.0000-2 00.0000 eGFR Zoj-Oykogdq-Afnbgyen) [id number] 09:04:00 Test Item Value Reference Range Comments WBC (test code = WBC) 6.4000 4.0000-10.0000 Lymphocytes % (test code = Lymphocytes %) 22.1000 % 22.400 0-43.6000 MID% (test code = MID%) 6.7000 % 1.2000-11.2000 Neutrophils % (test code = Neutrophils %) 71.2000 % 48.900 0-69.9000 Lymphocytes (test code = Lymphocytes) 1.4000 1.2000-3.2 000 MID (test code = MID) 0.4000 0.1000-1.1000 Neutrophils (test code = Neutrophils) 4.6000 1.5000-6.7 000 RBC (test code = RBC) 3.1600 3.7000-4.9000 HGB (test code = HGB) 9.6000 g/dL 11.2000-18.0000 HCT (test code = HCT) 27.0000 % 34.0000-44.0000 MCV (test code = MCV) 85.5000 fL 80.0000-94.0000 MCH (test code = MCH) 30.5000 pg 27.0000-34.0000 MCHC (test code = MCHC) 35.7000 g/dL 31.5000-36.0000 RDW (test code = RDW) 16.8000 11.0000-18.0000 PLT (test code = PLT) 219.0000 140.0000-440.0000 MPV (test code = MPV) 7.0000 fL 6.8000-10.6000 [id number] 09:04:00 Test Item Value Reference Range Comments Creatinine (test code = Creatinine) 1.0000 mg/dL 0.5000-1.200 0 Cr Clearance (Est) (test code = Cr 46.1100 75.0000-115.0 000 Clearance (Est)) Glucose (test code = Glucose) 94.0000 mg/dL 70.0000-118.0000 BUN (test code = BUN) 12.0000 mg/dL 7.0000-22.0000 Sodium (test code = Sodium) 131.0000 mmol/L 128.0000-145.0000 Potassium (test code = Potassium) 3.2000 mmol/L 3.6000-5.1000 Chloride (test code = Chloride) 91.0000 mmol/L 96.0000-108.0000 CO2 (test code = CO2) 28.0000 mmol/L 18.0000-33.0000 Calcium (test code = Calcium) 8.7100 mg/dL 8.0000-10.3000 Alkaline Phosphatase (test code = Alkaline 59.0000 42.00 00-141.0000 Phosphatase) ALT (SGPT) (test code = ALT (SGPT)) 5.0000 10.0000-47.0 000 AST (SGOT) (test code = AST (SGOT)) 7.0000 11.0000-37.0 000 Bilirubin, Total (test code = Bilirubin, 0.3000 mg/dL 0.0000- 1.6000 Total) Albumin (test code = Albumin) 3.5000 g/dL 3.5000-5.5000 Protein, Total (test code = Protein, 6.4000 g/dL 6.4000-8.10 00 Total) eGFR -[place] Citizen (test code = eGFR 65.0000 60.0000- 200.0000 -[place] Citizen) eGFR Etp-Aiaxzro-Tthiciqd (test code = 53.0000 60.0000-2 00.0000 eGFR Jxn-Ypaxiho-Ifhyffgz) [id number] 14:31:00 Test Item Value Reference Range Comments WBC (test code = WBC) 6.4000 4.0000-10.0000 Lymphocytes % (test code = Lymphocytes %) 22.8000 % 22.400 0-43.6000 MID% (test code = MID%) 7.4000 % 1.2000-11.2000 Neutrophils % (test code = Neutrophils %) 69.8000 % 48.900 0-69.9000 Lymphocytes (test code = Lymphocytes) 1.4000 1.2000-3.2 000 MID (test code = MID) 0.5000 0.1000-1.1000 Neutrophils (test code = Neutrophils) 4.5000 1.5000-6.7 000 RBC (test code = RBC) 3.2100 3.7000-4.9000 HGB (test code = HGB) 9.3000 g/dL 11.2000-18.0000 HCT (test code = HCT) 27.6000 % 34.0000-44.0000 MCV (test code = MCV) 85.9000 fL 80.0000-94.0000 MCH (test code = MCH) 29.0000 pg 27.0000-34.0000 MCHC (test code = MCHC) 33.7000 g/dL 31.5000-36.0000 RDW (test code = RDW) 17.0000 11.0000-18.0000 PLT (test code = PLT) 189.0000 140.0000-440.0000 MPV (test code = MPV) 6.4000 fL 6.8000-10.6000 [id number] 14:31:00 Test Item Value Reference Range Comments Creatinine (test code = Creatinine) 0.8000 mg/dL 0.5000-1.200 0 Cr Clearance (Est) (test code = Cr 57.6300 75.0000-115.0 000 Clearance (Est)) Glucose (test code = Glucose) 126.0000 mg/dL 70.0000-118.0000 BUN (test code = BUN) 7.0000 mg/dL 7.0000-22.0000 Sodium (test code = Sodium) 132.0000 mmol/L 128.0000-145.0000 Potassium (test code = Potassium) 3.6000 mmol/L 3.6000-5.1000 Chloride (test code = Chloride) 95.0000 mmol/L 96.0000-108.0000 CO2 (test code = CO2) 30.0000 mmol/L 18.0000-33.0000 Calcium (test code = Calcium) 8.4900 mg/dL 8.0000-10.3000 Alkaline Phosphatase (test code = Alkaline 64.0000 42.00 00-141.0000 Phosphatase) ALT (SGPT) (test code = ALT (SGPT)) 0.0000 10.0000-47.0 000 AST (SGOT) (test code = AST (SGOT)) 10.0000 11.0000-37.0 000 Bilirubin, Total (test code = Bilirubin, 0.4000 mg/dL 0.0000- 1.6000 Total) Albumin (test code = Albumin) 3.4000 g/dL 3.5000-5.5000 Protein, Total (test code = Protein, 6.2000 g/dL 6.4000-8.10 00 Total) eGFR -[place] (test code = eGFR 84.0000 60.0000- 200.0000 -[place]) eGFR Dxq-Tiutrzo-Aiysqvzn (test code = 69.0000 60.0000-2 00.0000 eGFR Sic-Ffyflql-Oguwulwz) Iron, [id number] 15:47:00 Test Item Value Reference Range Comments Iron, Total (test code = Iron, Total) 22.0000 27.0000-13 9.0000 TIBC (test code = TIBC) 160.0000 250.0000-450.0000 UIBC (test code = UIBC) 138.0000 118.0000-369.0000 % Iron Saturation (test code = % Iron 14.0000 % 15.0000-55 .0000 Saturation) Vitamin B12 (test code = Vitamin B12) 474.0000 pg/mL 232.0000-1 245.0000 Folate (test code = Folate) 5.9000 ng/mL Ferritin (test code = Ferritin) 641.0000 ng/mL 15.0000-150.0000 [id number] 10:22:00 Test Item Value Reference Range Comments WBC (test code = WBC) 6.2000 4.0000-10.0000 Lymphocytes % (test code = Lymphocytes %) 20.6000 % 22.400 0-43.6000 MID% (test code = MID%) 7.5000 % 1.2000-11.2000 Neutrophils % (test code = Neutrophils %) 71.9000 % 48.900 0-69.9000 Lymphocytes (test code = Lymphocytes) 1.3000 1.2000-3.2 000 MID (test code = MID) 0.4000 0.1000-1.1000 Neutrophils (test code = Neutrophils) 4.5000 1.5000-6.7 000 RBC (test code = RBC) 2.5100 3.7000-4.9000 HGB (test code = HGB) 7.3000 g/dL 11.2000-18.0000 HCT (test code = HCT) 21.4000 % 34.0000-44.0000 MCV (test code = MCV) 85.2000 fL 80.0000-94.0000 MCH (test code = MCH) 29.1000 pg 27.0000-34.0000 MCHC (test code = MCHC) 34.1000 g/dL 31.5000-36.0000 RDW (test code = RDW) 16.2000 11.0000-18.0000 PLT (test code = PLT) 266.0000 140.0000-440.0000 MPV (test code = MPV) 6.6000 fL 6.8000-10.6000 [id number] 10:22:00 Test Item Value Reference Range Comments Creatinine (test code = Creatinine) 1.4000 mg/dL 0.5000-1.200 0 Cr Clearance (Est) (test code = Cr 32.9300 75.0000-115.0 000 Clearance (Est)) Glucose (test code = Glucose) 118.0000 mg/dL 70.0000-118.0000 BUN (test code = BUN) 14.0000 mg/dL 7.0000-22.0000 Sodium (test code = Sodium) 131.0000 mmol/L 128.0000-145.0000 Potassium (test code = Potassium) 4.0000 mmol/L 3.6000-5.1000 Chloride (test code = Chloride) 102.0000 mmol/L 96.0000-108.0000 CO2 (test code = CO2) 24.0000 mmol/L 18.0000-33.0000 Calcium (test code = Calcium) 8.3400 mg/dL 8.0000-10.3000 Alkaline Phosphatase (test code = Alkaline 76.0000 42.00 00-141.0000 Phosphatase) ALT (SGPT) (test code = ALT (SGPT)) 8.0000 10.0000-47.0 000 AST (SGOT) (test code = AST (SGOT)) 10.0000 11.0000-37.0 000 Bilirubin, Total (test code = Bilirubin, 0.5000 mg/dL 0.0000- 1.6000 Total) Albumin (test code = Albumin) 3.3000 g/dL 3.5000-5.5000 Protein, Total (test code = Protein, 7.1000 g/dL 6.4000-8.10 00 Total) eGFR -[place] (test code = eGFR 44.0000 60.0000- 200.0000 -[place] Citizen) eGFR Zba-Wqecvoi-Ecfjgejy (test code = 36.0000 60.0000-2 00.0000 eGFR Con-Sychcqd-Itpuscca) [id number] 10:02:00 Test Item Value Reference Range Comments WBC (test code = WBC) 7.8000 4.0000-10.0000 Lymphocytes % (test code = Lymphocytes %) 21.9000 % 22.400 0-43.6000 MID% (test code = MID%) 6.7000 % 1.2000-11.2000 Neutrophils % (test code = Neutrophils %) 71.4000 % 48.900 0-69.9000 Lymphocytes (test code = Lymphocytes) 1.7000 1.2000-3.2 000 MID (test code = MID) 0.6000 0.1000-1.1000 Neutrophils (test code = Neutrophils) 5.5000 1.5000-6.7 000 RBC (test code = RBC) 2.4600 3.7000-4.9000 HGB (test code = HGB) 7.9000 g/dL 11.2000-18.0000 HCT (test code = HCT) 21.6000 % 34.0000-44.0000 MCV (test code = MCV) 87.5000 fL 80.0000-94.0000 MCH (test code = MCH) 32.0000 pg 27.0000-34.0000 MCHC (test code = MCHC) 36.5000 g/dL 31.5000-36.0000 RDW (test code = RDW) 16.0000 11.0000-18.0000 PLT (test code = PLT) 242.0000 140.0000-440.0000 MPV (test code = MPV) 6.5000 fL 6.8000-10.6000 [id number] 10:02:00 Test Item Value Reference Range Comments Creatinine (test code = Creatinine) 1.1000 mg/dL 0.5000-1.200 0 Cr Clearance (Est) (test code = Cr 41.9200 75.0000-115.0 000 Clearance (Est)) Glucose (test code = Glucose) 134.0000 mg/dL 70.0000-118.0000 BUN (test code = BUN) 8.0000 mg/dL 7.0000-22.0000 Sodium (test code = Sodium) 132.0000 mmol/L 128.0000-145.0000 Potassium (test code = Potassium) 3.7000 mmol/L 3.6000-5.1000 Chloride (test code = Chloride) 103.0000 mmol/L 96.0000-108.0000 CO2 (test code = CO2) 27.0000 mmol/L 18.0000-33.0000 Calcium (test code = Calcium) 8.4500 mg/dL 8.0000-10.3000 Alkaline Phosphatase (test code = Alkaline 69.0000 42.00 00-141.0000 Phosphatase) ALT (SGPT) (test code = ALT (SGPT)) 8.0000 10.0000-47.0 000 AST (SGOT) (test code = AST (SGOT)) 8.0000 11.0000-37.0 000 Bilirubin, Total (test code = Bilirubin, 0.6000 mg/dL 0.0000- 1.6000 Total) Albumin (test code = Albumin) 3.2000 g/dL 3.5000-5.5000 Protein, Total (test code = Protein, 6.6000 g/dL 6.4000-8.10 00 Total) eGFR -[place] (test code = eGFR 58.0000 60.0000- 200.0000 -[place] Citizen) eGFR Zsx-Vdnlmax-Txwrunqu (test code = 48.0000 60.0000-2 00.0000 eGFR Qkg-Zmacolv-Ifwxtltr) [id number] 10:07:00 Test Item Value Reference Range Comments WBC (test code = WBC) 7.1000 4.0000-10.0000 Lymphocytes % (test code = Lymphocytes %) 21.4000 % 22.400 0-43.6000 MID% (test code = MID%) 7.1000 % 1.2000-11.2000 Neutrophils % (test code = Neutrophils %) 71.5000 % 48.900 0-69.9000 Lymphocytes (test code = Lymphocytes) 1.5000 1.2000-3.2 000 MID (test code = MID) 0.5000 0.1000-1.1000 Neutrophils (test code = Neutrophils) 5.1000 1.5000-6.7 000 RBC (test code = RBC) 2.6400 3.7000-4.9000 HGB (test code = HGB) 7.8000 g/dL 11.2000-18.0000 HCT (test code = HCT) 23.1000 % 34.0000-44.0000 MCV (test code = MCV) 87.7000 fL 80.0000-94.0000 MCH (test code = MCH) 29.7000 pg 27.0000-34.0000 MCHC (test code = MCHC) 33.8000 g/dL 31.5000-36.0000 RDW (test code = RDW) 15.9000 11.0000-18.0000 PLT (test code = PLT) 270.0000 140.0000-440.0000 MPV (test code = MPV) 6.8000 fL 6.8000-10.6000 [id number] 10:07:00 Test Item Value Reference Range Comments Creatinine (test code = Creatinine) 1.0000 mg/dL 0.5000-1.200 0 Cr Clearance (Est) (test code = Cr 46.1100 75.0000-115.0 000 Clearance (Est)) Glucose (test code = Glucose) 108.0000 mg/dL 70.0000-118.0000 BUN (test code = BUN) 9.0000 mg/dL 7.0000-22.0000 Sodium (test code = Sodium) 130.0000 mmol/L 128.0000-145.0000 Potassium (test code = Potassium) 3.7000 mmol/L 3.6000-5.1000 Chloride (test code = Chloride) 101.0000 mmol/L 96.0000-108.0000 CO2 (test code = CO2) 27.0000 mmol/L 18.0000-33.0000 Calcium (test code = Calcium) 8.7300 mg/dL 8.0000-10.3000 Alkaline Phosphatase (test code = Alkaline 81.0000 42.00 00-141.0000 Phosphatase) ALT (SGPT) (test code = ALT (SGPT)) 7.0000 10.0000-47.0 000 AST (SGOT) (test code = AST (SGOT)) 11.0000 11.0000-37.0 000 Bilirubin, Total (test code = Bilirubin, 0.2000 mg/dL 0.0000- 1.6000 Total) Albumin (test code = Albumin) 3.3000 g/dL 3.5000-5.5000 Protein, Total (test code = Protein, 6.9000 g/dL 6.4000-8.10 00 Total) eGFR -[place] (test code = eGFR 65.0000 60.0000- 200.0000 -[place] Citizen) eGFR Pxu-Hwoytod-Sopninie (test code = 53.0000 60.0000-2 00.0000 eGFR Lcp-Zxqantr-Vupeuwjs) [id number] 09:56:00 Test Item Value Reference Range Comments WBC (test code = WBC) 3.8000 4.0000-10.0000 Lymphocytes % (test code = Lymphocytes %) 39.4000 % 22.400 0-43.6000 MID% (test code = MID%) 7.9000 % 1.2000-11.2000 Neutrophils % (test code = Neutrophils %) 52.7000 % 48.900 0-69.9000 Lymphocytes (test code = Lymphocytes) 1.5000 1.2000-3.2 000 MID (test code = MID) 0.3000 0.1000-1.1000 Neutrophils (test code = Neutrophils) 2.0000 1.5000-6.7 000 RBC (test code = RBC) 3.5500 3.7000-4.9000 HGB (test code = HGB) 10.4000 g/dL 11.2000-18.0000 HCT (test code = HCT) 32.0000 % 34.0000-44.0000 MCV (test code = MCV) 90.2000 fL 80.0000-94.0000 MCH (test code = MCH) 29.4000 pg 27.0000-34.0000 MCHC (test code = MCHC) 32.6000 g/dL 31.5000-36.0000 RDW (test code = RDW) 16.9000 11.0000-18.0000 PLT (test code = PLT) 157.0000 140.0000-440.0000 MPV (test code = MPV) 6.9000 fL 6.8000-10.6000 [id number] 09:56:00 Test Item Value Reference Range Comments Creatinine (test code = Creatinine) 1.0000 mg/dL 0.5000-1.200 0 Cr Clearance (Est) (test code = Cr 47.5500 75.0000-115.0 000 Clearance (Est)) Glucose (test code = Glucose) 124.0000 mg/dL 70.0000-118.0000 BUN (test code = BUN) 11.0000 mg/dL 7.0000-22.0000 Sodium (test code = Sodium) 135.0000 mmol/L 128.0000-145.0000 Potassium (test code = Potassium) 4.0000 mmol/L 3.6000-5.1000 Chloride (test code = Chloride) 105.0000 mmol/L 96.0000-108.0000 CO2 (test code = CO2) 31.0000 mmol/L 18.0000-33.0000 Calcium (test code = Calcium) 8.8500 mg/dL 8.0000-10.3000 Alkaline Phosphatase (test code = Alkaline 76.0000 42.00 00-141.0000 Phosphatase) ALT (SGPT) (test code = ALT (SGPT)) 5.0000 10.0000-47.0 000 AST (SGOT) (test code = AST (SGOT)) 10.0000 11.0000-37.0 000 Bilirubin, Total (test code = Bilirubin, 0.5000 mg/dL 0.0000- 1.6000 Total) Albumin (test code = Albumin) 3.6000 g/dL 3.5000-5.5000 Protein, Total (test code = Protein, 6.3000 g/dL 6.4000-8.10 00 Total) eGFR -[place] (test code = eGFR 65.0000 60.0000- 200.0000 -[place]) eGFR Ikm-Rxoxrkz-Hffiidqc (test code = 53.0000 60.0000-2 00.0000 eGFR Hwz-Incunlq-Cuphesnr) [id number] 08:59:00 Test Item Value Reference Range Comments WBC (test code = WBC) 3.3000 4.0000-10.0000 Lymphocytes % (test code = Lymphocytes %) 42.2000 % 22.400 0-43.6000 MID% (test code = MID%) 11.9000 % 1.2000-11.2000 Neutrophils % (test code = Neutrophils %) 45.9000 % 48.900 0-69.9000 Lymphocytes (test code = Lymphocytes) 1.4000 1.2000-3.2 000 MID (test code = MID) 0.4000 0.1000-1.1000 Neutrophils (test code = Neutrophils) 1.5000 1.5000-6.7 000 RBC (test code = RBC) 3.4600 3.7000-4.9000 HGB (test code = HGB) 10.5000 g/dL 11.2000-18.0000 HCT (test code = HCT) 31.1000 % 34.0000-44.0000 MCV (test code = MCV) 89.9000 fL 80.0000-94.0000 MCH (test code = MCH) 30.5000 pg 27.0000-34.0000 MCHC (test code = MCHC) 33.9000 g/dL 31.5000-36.0000 RDW (test code = RDW) 16.9000 11.0000-18.0000 PLT (test code = PLT) 130.0000 140.0000-440.0000 MPV (test code = MPV) 7.1000 fL 6.8000-10.6000 [id number] 08:59:00 Test Item Value Reference Range Comments Creatinine (test code = Creatinine) 1.0000 mg/dL 0.5000-1.200 0 Cr Clearance (Est) (test code = Cr 48.9000 75.0000-115.0 000 Clearance (Est)) Glucose (test code = Glucose) 138.0000 mg/dL 70.0000-118.0000 BUN (test code = BUN) 8.0000 mg/dL 7.0000-22.0000 Sodium (test code = Sodium) 134.0000 mmol/L 128.0000-145.0000 Potassium (test code = Potassium) 3.3000 mmol/L 3.6000-5.1000 Chloride (test code = Chloride) 106.0000 mmol/L 96.0000-108.0000 CO2 (test code = CO2) 29.0000 mmol/L 18.0000-33.0000 Calcium (test code = Calcium) 8.0600 mg/dL 8.0000-10.3000 Alkaline Phosphatase (test code = Alkaline 83.0000 42.00 00-141.0000 Phosphatase) ALT (SGPT) (test code = ALT (SGPT)) 9.0000 10.0000-47.0 000 AST (SGOT) (test code = AST (SGOT)) 16.0000 11.0000-37.0 000 Bilirubin, Total (test code = Bilirubin, 1.0000 mg/dL 0.0000- 1.6000 Total) Albumin (test code = Albumin) 3.5000 g/dL 3.5000-5.5000 Protein, Total (test code = Protein, 5.9000 g/dL 6.4000-8.10 00 Total) eGFR -[place] (test code = eGFR 65.0000 60.0000- 200.0000 -[place] Citizen) eGFR Eaj-Tbwomwq-Almfdumh (test code = 53.0000 60.0000-2 00.0000 eGFR Uih-Mkgdrhk-Lkqqpkyq) [id number] 14:15:00 Test Item Value Reference Range Comments WBC (test code = WBC) 1.9000 4.0000-10.0000 Lymphocytes % (test code = Lymphocytes %) 44.9000 % 22.400 0-43.6000 MID% (test code = MID%) 5.4000 % 1.2000-11.2000 Neutrophils % (test code = Neutrophils %) 49.7000 % 48.900 0-69.9000 Lymphocytes (test code = Lymphocytes) 0.8000 1.2000-3.2 000 MID (test code = MID) 0.2000 0.1000-1.1000 Neutrophils (test code = Neutrophils) 0.9000 1.5000-6.7 000 RBC (test code = RBC) 3.0600 3.7000-4.9000 HGB (test code = HGB) 8.8000 g/dL 11.2000-18.0000 HCT (test code = HCT) 28.0000 % 34.0000-44.0000 MCV (test code = MCV) 91.4000 fL 80.0000-94.0000 MCH (test code = MCH) 28.8000 pg 27.0000-34.0000 MCHC (test code = MCHC) 31.6000 g/dL 31.5000-36.0000 RDW (test code = RDW) 18.5000 11.0000-18.0000 PLT (test code = PLT) 111.0000 140.0000-440.0000 MPV (test code = MPV) 8.8000 fL 6.8000-10.6000 [id number] 09:56:00 Test Item Value Reference Range Comments PT (test code = PT) 23.8000 s 10.0000-14.0000 INR (test code = INR) 2.0000 0.0000-3.5000 Coumadin, Current [id number] 09:56:00 Test Item Value Reference Range Comments Coumadin, Current Dose (test code = 4mg qd Coumadin, Current Dose) Coumadin, New Dose (test code = hold per Tisha (chemo) Coumadin, New Dose) Return [id number] 09:56:00 Test Item Value Reference Range Comments Return Date (test code = Return Date) 1 week [id number] 09:19:00 Test Item Value Reference Range Comments Creatinine (test code = Creatinine) 1.2000 mg/dL 0.5000-1.200 0 Cr Clearance (Est) (test code = Cr 39.6300 75.0000-115.0 000 Clearance (Est)) Glucose (test code = Glucose) 99.0000 mg/dL 70.0000-118.0000 BUN (test code = BUN) 9.0000 mg/dL 7.0000-22.0000 Sodium (test code = Sodium) 133.0000 mmol/L 128.0000-145.0000 Potassium (test code = Potassium) 3.7000 mmol/L 3.6000-5.1000 Chloride (test code = Chloride) 108.0000 mmol/L 96.0000-108.0000 CO2 (test code = CO2) 24.0000 mmol/L 18.0000-33.0000 Calcium (test code = Calcium) 8.9600 mg/dL 8.0000-10.3000 Alkaline Phosphatase (test code = Alkaline 92.0000 42.00 00-141.0000 Phosphatase) ALT (SGPT) (test code = ALT (SGPT)) 7.0000 10.0000-47.0 000 AST (SGOT) (test code = AST (SGOT)) 11.0000 11.0000-37.0 000 Bilirubin, Total (test code = Bilirubin, 0.6000 mg/dL 0.0000- 1.6000 Total) Albumin (test code = Albumin) 3.9000 g/dL 3.5000-5.5000 Protein, Total (test code = Protein, 6.7000 g/dL 6.4000-8.10 00 Total) eGFR -[place] (test code = eGFR 52.0000 60.0000- 200.0000 -[place]) eGFR Gvw-Whkwlxz-Cisaqneu (test code = 43.0000 60.0000-2 00.0000 eGFR Ntv-Umxguuf-Jxqmrpme) [id number] 09:14:00 Test Item Value Reference Range Comments WBC (test code = WBC) 3.1000 4.0000-10.0000 Lymphocytes % (test code = Lymphocytes %) 57.5000 % 22.400 0-43.6000 MID% (test code = MID%) 6.6000 % 1.2000-11.1999 Neutrophils % (test code = Neutrophils %) 35.9000 % 48.900 0-69.9000 Lymphocytes (test code = Lymphocytes) 1.7000 1.2000-3.2 000 MID (test code = MID) 0.3000 0.1000-1.1000 Neutrophils (test code = Neutrophils) 1.1000 1.5000-6.7 000 RBC (test code = RBC) 2.9800 3.7000-4.9000 HGB (test code = HGB) 8.7000 g/dL 11.2000-18.0000 HCT (test code = HCT) 26.5000 % 34.0000-44.0000 MCV (test code = MCV) 88.9000 fL 80.0000-94.0000 MCH (test code = MCH) 29.2000 pg 27.0000-34.0000 MCHC (test code = MCHC) 32.8000 g/dL 31.5000-36.0000 RDW (test code = RDW) 18.1000 11.0000-18.0000 PLT (test code = PLT) 135.0000 140.0000-440.0000 MPV (test code = MPV) 7.6000 fL 6.8000-10.6000 [id number] 09:39:00 Test Item Value Reference Range Comments WBC (test code = WBC) 3.7000 4.0000-10.0000 Lymphocytes % (test code = Lymphocytes %) 51.7000 % 22.400 0-43.6000 MID% (test code = MID%) 6.6000 % .1999-11 Neutrophils % (test code = Neutrophils %) 41.7000 % 48.900 0-69.9000 Lymphocytes (test code = Lymphocytes) 1.9000 1.2000-3.2 000 MID (test code = MID) 0.3000 0.1000-1.1000 Neutrophils (test code = Neutrophils) 1.5000 1.5000-6.7 000 RBC (test code = RBC) 2.9500 3.7000-4.9000 HGB (test code = HGB) 9.5000 g/dL 11.2000-18.0000 HCT (test code = HCT) 26.5000 % 34.0000-44.0000 MCV (test code = MCV) 89.6000 fL 80.0000-94.0000 MCH (test code = MCH) 32.2000 pg 27.0000-34.0000 MCHC (test code = MCHC) 35.9000 g/dL 31.5000-36.0000 RDW (test code = RDW) 17.8000 11.0000-18.0000 PLT (test code = PLT) 162.0000 140.0000-440.0000 MPV (test code = MPV) 7.6000 fL 6.8000-10.6000 [id number] 11:05:00 Test Item Value Reference Range Comments WBC (test code = WBC) 4.3000 4.0000-10.0000 Lymphocytes % (test code = Lymphocytes %) 32.8000 % 22.400 0-43.6000 MID% (test code = MID%) 7.1000 % 1.2000-11.2000 Neutrophils % (test code = Neutrophils %) 60.1000 % 48.900 0-69.9000 Lymphocytes (test code = Lymphocytes) 1.4000 1.2000-3.2 000 MID (test code = MID) 0.3000 0.1000-1.1000 Neutrophils (test code = Neutrophils) 2.6000 1.5000-6.7 000 RBC (test code = RBC) 3.3600 3.7000-4.9000 HGB (test code = HGB) 10.1000 g/dL 11.2000-18.0000 HCT (test code = HCT) 30.0000 % 34.0000-44.0000 MCV (test code = MCV) 89.4000 fL 80.0000-94.0000 MCH (test code = MCH) 30.0000 pg 27.0000-34.0000 MCHC (test code = MCHC) 33.6000 g/dL 31.5000-36.0000 RDW (test code = RDW) 17.9000 11.0000-18.0000 PLT (test code = PLT) 174.0000 140.0000-440.0000 MPV (test code = MPV) 7.5000 fL 6.8000-10.6000 [id number] 11:05:00 Test Item Value Reference Range Comments Creatinine (test code = Creatinine) 1.2000 mg/dL 0.5000-1.200 0 Cr Clearance (Est) (test code = Cr 40.4300 75.0000-115.0 000 Clearance (Est)) Glucose (test code = Glucose) 117.0000 mg/dL 70.0000-118.0000 BUN (test code = BUN) 9.0000 mg/dL 7.0000-22.0000 Sodium (test code = Sodium) 135.0000 mmol/L 128.0000-145.0000 Potassium (test code = Potassium) 4.2000 mmol/L 3.6000-5.1000 Chloride (test code = Chloride) 109.0000 mmol/L 96.0000-108.0000 CO2 (test code = CO2) 25.0000 mmol/L 18.0000-33.0000 Calcium (test code = Calcium) 9.5500 mg/dL 8.0000-10.3000 Alkaline Phosphatase (test code = Alkaline 153.0000 42.00 00-141.0000 Phosphatase) ALT (SGPT) (test code = ALT (SGPT)) 25.0000 10.0000-47.0 000 AST (SGOT) (test code = AST (SGOT)) 14.0000 11.0000-37.0 000 Bilirubin, Total (test code = Bilirubin, 0.4000 mg/dL 0.0000- 1.6000 Total) Albumin (test code = Albumin) 3.9000 g/dL 3.5000-5.5000 Protein, Total (test code = Protein, 6.6000 g/dL 6.4000-8.10 00 Total) eGFR -[place] (test code = eGFR 52.0000 60.0000- 200.0000 -[place]) eGFR Tfl-Kzgvafk-Qskltdzs (test code = 43.0000 60.0000-2 00.0000 eGFR Vzi-Liaszzh-Qfyanhfn) [id number] 14:30:00 Test Item Value Reference Range Comments WBC (test code = WBC) 4.4000 4.0000-10.0000 Lymphocytes % (test code = Lymphocytes %) 35.5000 % 22.400 0-43.6000 MID% (test code = MID%) 5.4000 % 1.2000-11.2000 Neutrophils % (test code = Neutrophils %) 59.1000 % 48.900 0-69.9000 Lymphocytes (test code = Lymphocytes) 1.5000 1.2000-3.2 000 MID (test code = MID) 0.3000 0.1000-1.1000 Neutrophils (test code = Neutrophils) 2.6000 1.5000-6.7 000 RBC (test code = RBC) 3.3200 3.7000-4.9000 HGB (test code = HGB) 9.6000 g/dL 11.2000-18.0000 HCT (test code = HCT) 30.2000 % 34.0000-44.0000 MCV (test code = MCV) 90.8000 fL 80.0000-94.0000 MCH (test code = MCH) 28.9000 pg 27.0000-34.0000 MCHC (test code = MCHC) 31.8000 g/dL 31.5000-36.0000 RDW (test code = RDW) 17.1999 11.0000-18.0000 PLT (test code = PLT) 174.0000 140.0000-440.0000 MPV (test code = MPV) 7.9000 fL 6.8000-10.6000 [id number] 11:15:37 Test Item Value Reference Range Comments Creatinine (test code = Creatinine) 1.0000 mg/dL 0.5000-1.500 0 Cr Clearance (Est) (test code = Cr Clearance 50.3200 75. 0000-115.0000 (Est)) [id number] 10:51:00 Test Item Value Reference Range Comments WBC (test code = WBC) 3.1000 4.0000-10.0000 Lymphocytes % (test code = Lymphocytes %) 41.7000 % 22.400 0-43.6000 MID% (test code = MID%) 8.9000 % 1.2000-11.2000 Neutrophils % (test code = Neutrophils %) 49.4000 % 48.900 0-69.9000 Lymphocytes (test code = Lymphocytes) 1.3000 1.2000-3.2 000 MID (test code = MID) 0.3000 0.1000-1.1000 Neutrophils (test code = Neutrophils) 1.5000 1.5000-6.7 000 RBC (test code = RBC) 3.2600 3.7000-4.9000 HGB (test code = HGB) 9.4000 g/dL 11.2000-18.0000 HCT (test code = HCT) 29.2000 % 34.0000-44.0000 MCV (test code = MCV) 89.7000 fL 80.0000-94.0000 MCH (test code = MCH) 29.1000 pg 27.0000-34.0000 MCHC (test code = MCHC) 32.4000 g/dL 31.5000-36.0000 RDW (test code = RDW) 17.1000 11.0000-18.0000 PLT (test code = PLT) 233.0000 140.0000-440.0000 MPV (test code = MPV) 7.6000 fL 6.8000-10.6000 PT (test code = PT) 24.0000 s 10.0000-14.0000 INR (test code = INR) 2.0000 0.0000-3.5000 Coumadin, Current [id number] 10:51:00 Test Item Value Reference Range Comments Coumadin, Current Dose (test code = 4mg qd Coumadin, Current Dose) Coumadin, New Dose (test code = Continue same dosage Coumadin, New Dose) Return [id number] 10:51:00 Test Item Value Reference Range Comments Return Date (test code = Return Date) 2 weeks [id number] 10:17:00 Test Item Value Reference Range Comments WBC (test code = WBC) 1.7000 4.0000-10.0000 Lymphocytes % (test code = Lymphocytes %) 60.5000 % 22.400 0-43.6000 MID% (test code = MID%) 4.8000 % 1.2000-11.2000 Neutrophils % (test code = Neutrophils %) 34.7000 % 48.900 0-69.9000 Lymphocytes (test code = Lymphocytes) 1.0000 1.2000-3.2 000 MID (test code = MID) 0.1000 0.1000-1.1000 Neutrophils (test code = Neutrophils) 0.6000 1.5000-6.7 000 RBC (test code = RBC) 2.8400 3.7000-4.9000 HGB (test code = HGB) 8.8000 g/dL 11.2000-18.0000 HCT (test code = HCT) 24.5000 % 34.0000-44.0000 MCV (test code = MCV) 86.1000 fL 80.0000-94.0000 MCH (test code = MCH) 31.0000 pg 27.0000-34.0000 MCHC (test code = MCHC) 36.0000 g/dL 31.5000-36.0000 RDW (test code = RDW) 15.3000 11.0000-18.0000 PLT (test code = PLT) 204.0000 140.0000-440.0000 MPV (test code = MPV) 7.5000 fL 6.8000-10.6000 [id number] 10:16:00 Test Item Value Reference Range Comments Creatinine (test code = Creatinine) 1.0000 mg/dL 0.5000-1.200 0 Cr Clearance (Est) (test code = Cr 50.8900 75.0000-115.0 000 Clearance (Est)) Glucose (test code = Glucose) 98.0000 mg/dL 70.0000-118.0000 BUN (test code = BUN) 6.0000 mg/dL 7.0000-22.0000 Sodium (test code = Sodium) 136.0000 mmol/L 128.0000-145.0000 Potassium (test code = Potassium) 3.7000 mmol/L 3.6000-5.1000 Chloride (test code = Chloride) 112.0000 mmol/L 96.0000-108.0000 CO2 (test code = CO2) 28.0000 mmol/L 18.0000-33.0000 Calcium (test code = Calcium) 8.9400 mg/dL 8.0000-10.3000 Alkaline Phosphatase (test code = Alkaline 84.0000 42.00 00-141.0000 Phosphatase) ALT (SGPT) (test code = ALT (SGPT)) 6.0000 10.0000-47.0 000 AST (SGOT) (test code = AST (SGOT)) 7.0000 11.0000-37.0 000 Bilirubin, Total (test code = Bilirubin, 0.4000 mg/dL 0.0000- 1.6000 Total) Albumin (test code = Albumin) 3.6000 g/dL 3.5000-5.5000 Protein, Total (test code = Protein, 5.9000 g/dL 6.4000-8.10 00 Total) eGFR -[place] Citizen (test code = eGFR 65.0000 60.0000- 200.0000 -[place] Citizen) eGFR Gqi-Fxismcu-Qdzrpajc (test code = 53.0000 60.0000-2 00.0000 eGFR Vak-Dydldub-Ecanonpf) [id number] 13:52:55 Test Item Value Reference Range Comments Creatinine (test code = Creatinine) 1.0000 mg/dL 0.5000-1.500 0 Cr Clearance (Est) (test code = Cr Clearance 51.4200 75. 0000-115.0000 (Est)) [id number] 13:24:00 Test Item Value Reference Range Comments WBC (test code = WBC) 2.8000 4.0000-10.0000 Lymphocytes % (test code = Lymphocytes %) 41.2000 % 22.400 0-43.6000 MID% (test code = MID%) 7.4000 % 1.2000-11.2000 Neutrophils % (test code = Neutrophils %) 51.4000 % 48.900 0-69.9000 Lymphocytes (test code = Lymphocytes) 1.1000 1.2000-3.2 000 MID (test code = MID) 0.3000 0.1000-1.1000 Neutrophils (test code = Neutrophils) 1.4000 1.5000-6.7 000 RBC (test code = RBC) 3.1700 3.7000-4.9000 HGB (test code = HGB) 8.9000 g/dL 11.2000-18.0000 HCT (test code = HCT) 27.5000 % 34.0000-44.0000 MCV (test code = MCV) 86.6000 fL 80.0000-94.0000 MCH (test code = MCH) 28.1000 pg 27.0000-34.0000 MCHC (test code = MCHC) 32.5000 g/dL 31.5000-36.0000 RDW (test code = RDW) 14.9000 11.0000-18.0000 PLT (test code = PLT) 156.0000 140.0000-440.0000 MPV (test code = MPV) 7.3000 fL 6.8000-10.6000 [id number] 13:24:00 Test Item Value Reference Range Comments Creatinine (test code = Creatinine) 1.0000 mg/dL 0.5000-1.200 0 Cr Clearance (Est) (test code = Cr 51.4200 75.0000-115.0 000 Clearance (Est)) Glucose (test code = Glucose) 129.0000 mg/dL 70.0000-118.0000 BUN (test code = BUN) 7.0000 mg/dL 7.0000-22.0000 Sodium (test code = Sodium) 134.0000 mmol/L 128.0000-145.0000 Potassium (test code = Potassium) 3.6000 mmol/L 3.6000-5.1000 Chloride (test code = Chloride) 108.0000 mmol/L 96.0000-108.0000 CO2 (test code = CO2) 28.0000 mmol/L 18.0000-33.0000 Calcium (test code = Calcium) 8.7800 mg/dL 8.0000-10.3000 Alkaline Phosphatase (test code = Alkaline 85.0000 42.00 00-141.0000 Phosphatase) ALT (SGPT) (test code = ALT (SGPT)) 7.0000 10.0000-47.0 000 AST (SGOT) (test code = AST (SGOT)) 8.0000 11.0000-37.0 000 Bilirubin, Total (test code = Bilirubin, 0.4000 mg/dL 0.0000- 1.6000 Total) Albumin (test code = Albumin) 3.7000 g/dL 3.5000-5.5000 Protein, Total (test code = Protein, 6.2000 g/dL 6.4000-8.10 00 Total) eGFR -[place] Citizen (test code = eGFR 65.0000 60.0000- 200.0000 -[place] Citizen) eGFR Hnl-Ybmrusv-Cojymqiv (test code = 53.0000 60.0000-2 00.0000 eGFR Lzi-Urskxfk-Thxuagwa) [id number] 10:52:00 Test Item Value Reference Range Comments Creatinine (test code = Creatinine) 1.0000 mg/dL 0.5000-1.200 0 Cr Clearance (Est) (test code = Cr 51.6800 75.0000-115.0 000 Clearance (Est)) Glucose (test code = Glucose) 103.0000 mg/dL 70.0000-118.0000 BUN (test code = BUN) 8.0000 mg/dL 7.0000-22.0000 Sodium (test code = Sodium) 136.0000 mmol/L 128.0000-145.0000 Potassium (test code = Potassium) 3.7000 mmol/L 3.6000-5.1000 Chloride (test code = Chloride) 111.0000 mmol/L 96.0000-108.0000 CO2 (test code = CO2) 30.0000 mmol/L 18.0000-33.0000 Calcium (test code = Calcium) 8.3400 mg/dL 8.0000-10.3000 Alkaline Phosphatase (test code = Alkaline 88.0000 42.00 00-141.0000 Phosphatase) ALT (SGPT) (test code = ALT (SGPT)) 0.0000 10.0000-47.0 000 AST (SGOT) (test code = AST (SGOT)) 8.0000 11.0000-37.0 000 Bilirubin, Total (test code = Bilirubin, 0.7000 mg/dL 0.0000- 1.6000 Total) Albumin (test code = Albumin) 3.8000 g/dL 3.5000-5.5000 Protein, Total (test code = Protein, 6.4000 g/dL 6.4000-8.10 00 Total) eGFR -[place] Citizen (test code = eGFR 65.0000 60.0000- 200.0000 -[place] Citizen) eGFR Fve-Vaivfgs-Oroebhmm (test code = 53.0000 60.0000-2 00.0000 eGFR Ocb-Subzddu-Qcanohov) [id number] 10:51:00 Test Item Value Reference Range Comments WBC (test code = WBC) 3.3000 4.0000-10.0000 Lymphocytes % (test code = Lymphocytes %) 35.4000 % 22.400 0-43.6000 MID% (test code = MID%) 9.2000 % 1.2000-11.2000 Neutrophils % (test code = Neutrophils %) 55.4000 % 48.900 0-69.9000 Lymphocytes (test code = Lymphocytes) 1.1000 1.2000-3.2 000 MID (test code = MID) 0.4000 0.1000-1.1000 Neutrophils (test code = Neutrophils) 1.8000 1.5000-6.7 000 RBC (test code = RBC) 3.1100 3.7000-4.9000 HGB (test code = HGB) 9.6000 g/dL 11.2000-18.0000 HCT (test code = HCT) 26.6000 % 34.0000-44.0000 MCV (test code = MCV) 85.4000 fL 80.0000-94.0000 MCH (test code = MCH) 30.8000 pg 27.0000-34.0000 MCHC (test code = MCHC) 36.0000 g/dL 31.5000-36.0000 RDW (test code = RDW) 14.8000 11.0000-18.0000 PLT (test code = PLT) 122.0000 140.0000-440.0000 MPV (test code = MPV) 6.9000 fL 6.8000-10.6000 PT (test code = PT) 21.0000 s 10.0000-14.0000 INR (test code = INR) 2.5000 0.0000-3.5000 Coumadin, Current [id number] 10:51:00 Test Item Value Reference Range Comments Coumadin, Current Dose (test tues/thur 5mg/all other d ays code = Coumadin, Current Dose) 4mg Coumadin, New Dose (test code = x Coumadin, New Dose) Return [id number] 10:51:00 Test Item Value Reference Range Comments Return Date (test code = Return Date) x [id number] 14:18:00 Test Item Value Reference Range Comments WBC (test code = WBC) 2.8000 4.0000-10.0000 Lymphocytes % (test code = Lymphocytes %) 62.1000 % 22.400 0-43.6000 MID% (test code = MID%) 3.5000 % 1.2000-11.2000 Neutrophils % (test code = Neutrophils %) 34.4000 % 48.900 0-69.9000 Lymphocytes (test code = Lymphocytes) 1.7000 1.2000-3.2 000 MID (test code = MID) 0.2000 0.1000-1.1000 Neutrophils (test code = Neutrophils) 0.9000 1.5000-6.7 000 RBC (test code = RBC) 3.7400 3.7000-4.9000 HGB (test code = HGB) 10.7000 g/dL 11.2000-18.0000 HCT (test code = HCT) 33.2000 % 34.0000-44.0000 MCV (test code = MCV) 88.7000 fL 80.0000-94.0000 MCH (test code = MCH) 28.6000 pg 27.0000-34.0000 MCHC (test code = MCHC) 32.2000 g/dL 31.5000-36.0000 RDW (test code = RDW) 15.0000 11.0000-18.0000 PLT (test code = PLT) 164.0000 140.0000-440.0000 MPV (test code = MPV) 8.3000 fL 6.8000-10.6000 PT (test code = PT) 18.8000 s 10.0000-14.0000 INR (test code = INR) 1.6000 0.0000-3.5000 Coumadin, Current [id number] 14:18:00 Test Item Value Reference Range Comments Coumadin, Current Dose (test code = 4mg qd Coumadin, Current Dose) Coumadin, New Dose (test code = 5mg x 2days then 4mg Coumadin, New Dose) Return [id number] 14:18:00 Test Item Value Reference Range Comments Return Date (test code = Return Date) 1 week [id number] 10:37:00 Test Item Value Reference Range Comments Creatinine (test code = Creatinine) 1.0000 mg/dL 0.5000-1.200 0 Cr Clearance (Est) (test code = Cr 52.5900 75.0000-115.0 000 Clearance (Est)) Glucose (test code = Glucose) 109.0000 mg/dL 70.0000-118.0000 BUN (test code = BUN) 9.0000 mg/dL 7.0000-22.0000 Sodium (test code = Sodium) 134.0000 mmol/L 128.0000-145.0000 Potassium (test code = Potassium) 4.0000 mmol/L 3.6000-5.1000 Chloride (test code = Chloride) 110.0000 mmol/L 96.0000-108.0000 CO2 (test code = CO2) 27.0000 mmol/L 18.0000-33.0000 Calcium (test code = Calcium) 8.8400 mg/dL 8.0000-10.3000 Alkaline Phosphatase (test code = Alkaline 72.0000 42.00 00-141.0000 Phosphatase) ALT (SGPT) (test code = ALT (SGPT)) 6.0000 10.0000-47.0 000 AST (SGOT) (test code = AST (SGOT)) 10.0000 11.0000-37.0 000 Bilirubin, Total (test code = Bilirubin, 0.5000 mg/dL 0.0000- 1.6000 Total) Albumin (test code = Albumin) 3.8000 g/dL 3.5000-5.5000 Protein, Total (test code = Protein, 6.3000 g/dL 6.4000-8.10 00 Total) eGFR -[place] Citizen (test code = eGFR 65.0000 60.0000- 200.0000 -[place] Citizen) eGFR Ggr-Gkxdruw-Hljouxvz (test code = 53.0000 60.0000-2 00.0000 eGFR Hsi-Rzrvjqt-Kycysdcm) [id number] 10:36:00 Test Item Value Reference Range Comments PT (test code = PT) 16.0000 s 10.0000-14.0000 INR (test code = INR) 3.2000 0.0000-3.5000 Coumadin, Current [id number] 10:36:00 Test Item Value Reference Range Comments Coumadin, Current Dose (test code = 5 mg qd Coumadin, Current Dose) Coumadin, New Dose (test code = hold today/4mg tomorrow Coumadin, New Dose) Return [id number] 10:36:00 Test Item Value Reference Range Comments Return Date (test code = Return Date) 1 week [id number] 10:35:00 Test Item Value Reference Range Comments WBC (test code = WBC) 2.4000 4.0000-10.0000 Lymphocytes % (test code = Lymphocytes %) 50.9000 % 22.400 0-43.6000 MID% (test code = MID%) 7.8000 % 1.2000-11.2000 Neutrophils % (test code = Neutrophils %) 41.3000 % 48.900 0-69.9000 Lymphocytes (test code = Lymphocytes) 1.2000 1.2000-3.2 000 MID (test code = MID) 0.2000 0.1000-1.1000 Neutrophils (test code = Neutrophils) 1.0000 1.5000-6.7 000 RBC (test code = RBC) 3.5800 3.7000-4.9000 HGB (test code = HGB) 9.5000 g/dL 11.2000-18.0000 HCT (test code = HCT) 30.7000 % 34.0000-44.0000 MCV (test code = MCV) 85.8000 fL 80.0000-94.0000 MCH (test code = MCH) 26.6000 pg 27.0000-34.0000 MCHC (test code = MCHC) 31.0000 g/dL 31.5000-36.0000 RDW (test code = RDW) 14.2000 11.0000-18.0000 PLT (test code = PLT) 223.0000 140.0000-440.0000 MPV (test code = MPV) 7.1000 fL 6.8000-10.6000 [id number] 12:42:00 Test Item Value Reference Range Comments PT (test code = PT) 18.0000 s 10.0000-14.0000 INR (test code = INR) 2.8000 0.0000-3.5000 Coumadin, Current [id number] 12:42:00 Test Item Value Reference Range Comments Coumadin, Current Dose (test code = 5 mg qd Coumadin, Current Dose) Coumadin, New Dose (test code = Continue same dosage Coumadin, New Dose) Return [id number] 12:42:00 Test Item Value Reference Range Comments Return Date (test code = Return Date) 1 week [id number] 10:03:00 Test Item Value Reference Range Comments WBC (test code = WBC) 3.3000 4.0000-10.0000 Lymphocytes % (test code = Lymphocytes %) 44.7000 % 22.400 0-43.6000 MID% (test code = MID%) 5.8000 % 1.2000-11.2000 Neutrophils % (test code = Neutrophils %) 49.5000 % 48.900 0-69.9000 Lymphocytes (test code = Lymphocytes) 1.5000 1.2000-3.2 000 MID (test code = MID) 0.2000 0.1000-1.1000 Neutrophils (test code = Neutrophils) 1.6000 1.5000-6.7 000 RBC (test code = RBC) 3.8900 3.7000-4.9000 HGB (test code = HGB) 11.0000 g/dL 11.2000-18.0000 HCT (test code = HCT) 34.3000 % 34.0000-44.0000 MCV (test code = MCV) 87.9000 fL 80.0000-94.0000 MCH (test code = MCH) 28.3000 pg 27.0000-34.0000 MCHC (test code = MCHC) 32.2000 g/dL 31.5000-36.0000 RDW (test code = RDW) 14.0000 11.0000-18.0000 PLT (test code = PLT) 214.0000 140.0000-440.0000 MPV (test code = MPV) 8.3000 fL 6.8000-10.6000 [id number] 11:27:53 Test Item Value Reference Range Comments Creatinine (test code = Creatinine) 1.2000 mg/dL 0.5000-1.500 0 Cr Clearance (Est) (test code = Cr Clearance 43.8800 75. 0000-115.0000 (Est)) [id number] 10:09:00 Test Item Value Reference Range Comments WBC (test code = WBC) 4.4000 4.0000-10.0000 Lymphocytes % (test code = Lymphocytes %) 29.0000 % 22.400 0-43.6000 MID% (test code = MID%) 5.9000 % 1.2000-11.2000 Neutrophils % (test code = Neutrophils %) 65.1000 % 48.900 0-69.9000 Lymphocytes (test code = Lymphocytes) 1.2000 1.2000-3.2 000 MID (test code = MID) 0.3000 0.1000-1.1000 Neutrophils (test code = Neutrophils) 2.9000 1.5000-6.7 000 RBC (test code = RBC) 3.8800 3.7000-4.9000 HGB (test code = HGB) 11.2000 g/dL 11.2000-18.0000 HCT (test code = HCT) 33.6000 % 34.0000-44.0000 MCV (test code = MCV) 86.6000 fL 80.0000-94.0000 MCH (test code = MCH) 29.0000 pg 27.0000-34.0000 MCHC (test code = MCHC) 33.4000 g/dL 31.5000-36.0000 RDW (test code = RDW) 14.0000 11.0000-18.0000 PLT (test code = PLT) 145.0000 140.0000-440.0000 MPV (test code = MPV) 7.6000 fL 6.8000-10.6000 [id number] 10:09:00 Test Item Value Reference Range Comments Creatinine (test code = Creatinine) 1.2000 mg/dL 0.5000-1.200 0 Cr Clearance (Est) (test code = Cr 43.8800 75.0000-115.0 000 Clearance (Est)) Glucose (test code = Glucose) 141.0000 mg/dL 70.0000-118.0000 BUN (test code = BUN) 7.0000 mg/dL 7.0000-22.0000 Sodium (test code = Sodium) 135.0000 mmol/L 128.0000-145.0000 Potassium (test code = Potassium) 4.0000 mmol/L 3.6000-5.1000 Chloride (test code = Chloride) 109.0000 mmol/L 96.0000-108.0000 CO2 (test code = CO2) 28.0000 mmol/L 18.0000-33.0000 Calcium (test code = Calcium) 9.0900 mg/dL 8.0000-10.3000 Alkaline Phosphatase (test code = Alkaline 96.0000 42.00 00-141.0000 Phosphatase) ALT (SGPT) (test code = ALT (SGPT)) 6.0000 10.0000-47.0 000 AST (SGOT) (test code = AST (SGOT)) 10.0000 11.0000-37.0 000 Bilirubin, Total (test code = Bilirubin, 0.5000 mg/dL 0.0000- 1.6000 Total) Albumin (test code = Albumin) 3.8000 g/dL 3.5000-5.5000 Protein, Total (test code = Protein, 7.0000 g/dL 6.4000-8.10 00 Total) eGFR -[place] Citizen (test code = eGFR 52.0000 60.0000- 200.0000 -[place] Citizen) eGFR Hxq-Nhziqrz-Zqsagzcc (test code = 43.0000 60.0000-2 00.0000 eGFR Rte-Texejft-Qckvtqsc) [id number] 08:22:00 Test Item Value Reference Range Comments PT (test code = PT) 13.1000 s 10.0000-14.0000 INR (test code = INR) 1.1000 0.0000-3.5000 Coumadin, Current [id number] 08:22:00 Test Item Value Reference Range Comments Coumadin, Current Dose (test code = 5mg Coumadin, Current Dose) Coumadin, New Dose (test code = holding due to thoracen Coumadin, New Dose) Return [id number] 08:22:00 Test Item Value Reference Range Comments Return Date (test code = Return Date) 2 weeks Coumadin, New [id number] 08:22:00 Test Item Value Reference Range Comments Coumadin, New Dose (test code = holding due to thoracen Coumadin, New Dose) Coumadin, Current Dose (test code = 5mg Coumadin, Current Dose) [id number] 16:18:00 Test Item Value Reference Range Comments PT (test code = PT) 32.0000 s 10.0000-14.0000 INR (test code = INR) 2.7000 0.0000-3.5000 Coumadin, Current [id number] 16:18:00 Test Item Value Reference Range Comments Coumadin, Current Dose (test code = 5mg Coumadin, Current Dose) Coumadin, New Dose (test code = Continue same dosage Coumadin, New Dose) Return [id number] 16:18:00 Test Item Value Reference Range Comments Return Date (test code = Return Date) 1 week Coumadin, New [id number] 16:18:00 Test Item Value Reference Range Comments Coumadin, New Dose (test code = Continue same dosage Coumadin, New Dose) Coumadin, Current Dose (test code = 5mg Coumadin, Current Dose) [id number] 16:18:00 Test Item Value Reference Range Comments INR (test code = INR) 2.7000 0.0000-3.5000 PT (test code = PT) 32.0000 s 10.0000-14.0000 Assessments Condition Name Status Diagnosis Date Treating Clinici an 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, initial encounter Gastritis Active Traumatic open wound of right lower leg, Active sequela Numbness in left leg Active PVD (peripheral vascular disease) Active Biliary dyskinesia Active Hypertension Active Duodenitis Active 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 Encounter for preventive health examination Active Right BKA infection Active Diabetes mellitus, type 2 Active COPD (chronic obstructive pulmonary disease) Active Complication of chemotherapy, sequela Active CAD (coronary artery disease) Active 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 Gastritis Active Traumatic open wound of right lower leg, Active sequela Numbness in left leg Active PVD (peripheral vascular disease) Active Biliary dyskinesia Active Hypertension Active Duodenitis Active AAA (abdominal aortic aneurysm) Active Right BKA infection Active Diabetes mellitus, type 2 Active H/O endovascular stent graft for abdominal Active aortic aneurysm CAD (coronary artery disease) Active Acute bilateral back pain, unspecified back Active location AAA (abdominal aortic aneurysm) Active Diabetes mellitus, type 2 Active H/O endovascular stent graft for abdominal Active aortic aneurysm COPD (chronic obstructive pulmonary disease) Active 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 Hypertension Active Acute bilateral back pain, unspecified back Active location COPD (chronic obstructive pulmonary disease) Active Gastritis Active Abdominal pain, RUQ (right upper quadrant) Active AAA (abdominal aortic aneurysm) Active Right BKA infection Active Diabetes mellitus, type 2 Active H/O endovascular stent graft for abdominal Active aortic aneurysm COPD (chronic obstructive pulmonary disease) Active CAD (coronary artery disease) Active 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 CAD (coronary artery disease) Active Right BKA infection Active Diabetes mellitus, type 2 Active Secondary squamous cell carcinoma of lung, Active unspecified laterality 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 AAA (abdominal aortic aneurysm) Active Acute bilateral back pain, unspecified back Active location Malignant neoplasm of lower lobe, right Active bronchus or lung Malignant neoplasm of lower lobe, right Active bronchus or lung Malignant neoplasm of lower lobe, right Active bronchus or lung Malignant neoplasm of lower lobe, right Active bronchus or lung Malignant neoplasm of lower lobe, right Active bronchus or lung Malignant neoplasm of lower lobe, right Active bronchus or lung Malignant neoplasm of lower lobe, right Active bronchus or lung 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 Encounter for preventive health examination Active Right BKA infection Active Diabetes mellitus, type 2 Active COPD (chronic obstructive pulmonary disease) Active Complication of chemotherapy, sequela Active CAD (coronary artery disease) Active 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 Gastritis Active Traumatic open wound of right lower leg, Active sequela Numbness in left leg Active PVD (peripheral vascular disease) Active Hypertension Active Duodenitis Active 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 Diabetes mellitus, type 2 Active COPD (chronic obstructive pulmonary disease) Active CAD (coronary artery disease) Active PVD (peripheral vascular disease) Active Hypertension Active 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 Encounter for preventive health examination Active Right BKA infection Active Diabetes mellitus, type 2 Active COPD (chronic obstructive pulmonary disease) Active Complication of chemotherapy, sequela Active CAD (coronary artery disease) Active 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 Malignant neoplasm of lower lobe, right Active bronchus or lung Malignant neoplasm of lower lobe, right Active bronchus or lung Malignant neoplasm of lower lobe, right Active bronchus or lung Malignant neoplasm of lower lobe, right Active bronchus or lung Malignant neoplasm of lower lobe, right Active bronchus or lung Numbness in left leg Active Malignant neoplasm of lower lobe, right Active bronchus or lung Malignant neoplasm of lower lobe, right Active bronchus or lung Encounters Start End Encounter Admission Attending Care Care Encounter Date/Time Date/Time Type Type Clinicians Facility Department ID 2019-12-11 2019-12-11 Appointment LYNDSEY UribeTW [id number] 11:00:00 11:00:00 ; Aaron Uribe MD 2019-12-11 2019-12-11 [facility] [id number] 00:00:00 00:00:00 Dr. Tobias fraire [facility] 2019-12-01 2019-12-01 Appointment LYNDSEY Echols [id number] 10:15:00 10:15:00 ; Kelvin Echols MD 2019-11-28 2019-11-28 Outpatient Ann Juarez n [id number] 00:00:00 00:00:00 [facility] On[facility] [place] 2019-11-21 2019-11-21 Outpatient Ann Virkyenni n [id number] 00:00:00 00:00:00 [facility] [place] 2019-11-10 2019-11-10 Outpatient ShawnmarlonAnn rn [id number] 00:00:00 00:00:00 [facility] [place] 2019-11-03 2019-11-03 Outpatient Shawnmarlon Ann Jt rn [id number] 00:00:00 00:00:00 [facility] [place] 2019-10-24 2019-10-24 Outpatient Ann Virkyenni n [id number] 00:00:00 00:00:00 [facility] On[facility] [place] 2019-10-22 2019-10-22 Outpatient Ann Virkyenni n [id number] 00:00:00 00:00:00 [facility] On[facility] [place] 2019-10-21 2019-10-21 Outpatient Ann Virkyenni n [id number] 00:00:00 00:00:00 [facility] Medical Oncology [facility] [place] 2019-10-10 2019-10-10 Outpatient ShawnmarlonAnn rn [id number] 00:00:00 00:00:00 [facility] [place] 2019-10-09 2019-10-09 Outpatient Ann Virkyenni n [id number] 00:00:00 00:00:00 [facility] On[facility] [place] 2019-09-25 2019-09-25 Outpatient Ann Virkyenni n [id number] 00:00:00 00:00:00 [facility] Medical Oncology [facility] [place] 2019-09-17 2019-09-17 Outpatient Ann Virkyenni n [id number] 00:00:00 00:00:00 [facility] On[facility] [place] 2019-09-05 2019-09-05 Outpatient Ann Zambrano rn [id number] 00:00:00 00:00:00 [facility] On[facility] [place] 2019-09-04 2019-09-04 Outpatient ShawnmarlonAnn rn [id number] 00:00:00 00:00:00 [facility] Oncology Oncology [facility] 2019-09-02 2019-09-02 Outpatient Ann Juarez n [id number] 00:00:00 00:00:00 [facility] Medical Oncology [facility] [place] 2019-08-26 2019-08-26 [facility] [id number] 00:00:00 00:00:00 Sammi [facility] Oncology [facility] [place] 2019-08-05 2019-08-05 Outpatient Ann Juarez n [id number] 00:00:00 00:00:00 [facility] On[facility] [place] 2019-07-25 2019-07-25 Outpatient Ann Juarez n [id number] 00:00:00 00:00:00 [facility] Medical Oncology [facility] [place] 2019-07-24 2019-07-24 Kenya Zambrano [facility] [id number] 00:00:00 00:00:00 Dr. Tobias Collado [facility] Oncology [facility] [place] 2019-07-18 2019-07-18 Appointment LYNDSEY Vicente [facility] 27 [id number] 10:30:00 10:30:00 ; Anthony Jefferson MD 2019-07-17 2019-07-17 Kenya Ann Zambrano [facility] [id number] 00:00:00 00:00:00 Dr. Tobias Collado [facility] Oncology [facility] [place] 2019-06-17 2019-06-17 Outpatient Ann Juarez n [id number] 00:00:00 00:00:00 [facility] Oncology [facility] [place] 2019-05-01 2019-05-01 Outpatient Ann Zambranoe rn [id number] 00:00:00 00:00:00 [facility] Oncology [facility] [place] 2019-04-29 2019-04-29 Outpatient Ann Zambranoe rn [id number] 00:00:00 00:00:00 [facility] Medical Oncology [facility] [place] 2019-04-10 2019-04-10 Outpatient Ann Juarez n [id number] 00:00:00 00:00:00 [facility] Medical Oncology [facility] [place] 2019-04-03 2019-04-03 Appointment [facility] [id number] 15:00:00 15:00:00 ; Darya Pride 2019-04-02 2019-04-02 Appointment [facility] [id number] 15:00:00 15:00:00 ; Sagar Bonds MD 2019-04-02 2019-04-[address] [facility] [id number] 11:50:00 11:50:00 ; WILL la, X-Ray 2019-04-02 2019-04-02 [facility] [id number] 11:00:00 11:00:00 ; Anthony Jefferson MD 2019-04-02 2019-04-02 Outpatient [facility] rn [id number] 00:00:00 00:00:00 [facility] Oncology [facility] 2019-03-06 2019-03-06 Appointment [facility] [id number] 11:30:00 11:30:00 ; WILL la, Echo 2019-01-09 2019-01-09 [facility] [id number] 11:55:00 11:55:00 ; WILL la, Lab WB 2019-01-09 2019-01-09 Kenya [facility] [id number] 00:00:00 00:00:00 Dr. Collado [facility] Oncology [facility] 2018-12-23 2018-12-23 [facility] [id number] 10:45:00 10:45:00 ; Anthony Jefferson MD 2018-12-17 2018-12-17 O Kelvin Echols [facility] [id number] 11:15:00 11:15:00 Kelvin Echols 2018-12-05 2018-12-05 [facility] [id number] 11:30:00 11:30:00 ; Sagar Bonds MD 2018-11-16 2018-11-16 Outpatient [facility] n [id number] 00:00:00 00:00:00 [facility] Oncology Oncology [facility] 2018-11-11 2018-11-11 Appointment JONATHAN VicenteTW [facility] 22 [id number] 14:00:00 14:00:00 ; Anthony Jefferson MD 2018-10-17 2018-10-17 Appointment [facility] [id number] 10:00:00 10:00:00 ; Kelvin Echols MD 2018-10-16 2018-10-16 Outpatient MarcelloAnn reyesabhinav rn [id number] 00:00:00 00:00:00 [facility] Oncology Oncology [facility] 2018-10-14 2018-10-14 Appointment [facility] [id number] 09:30:00 09:30:00 ; Sagar Bonds MD 2018-09-20 2018-09-20 [facility]ointment [facility] [id number] 11:30:00 11:30:00 ; Anthony Jefferson MD 2018-09-17 2018-09-17 [id number] 15:00:00 15:00:00 ; [place] LENYTammy , ROOM 2018-09-09 2018-09-[address] [facility] 21 [id number] 10:15:00 10:15:00 ; Anthony Jefferson MD 2018-07-18 2018-07-18 Appointment [facility] [id number] 10:00:00 10:00:00 ; Kelvin Echols MD 2018-07-05 2018-07-05 [facility] [id number] 00:00:00 00:00:00 Luis Fraire [facility] Oncology Oncology [facility] 2018-07-03 2018-07-03 Outpatient [facility] n [id number] 00:00:00 00:00:00 [facility] Oncology Oncology [facility] 2018-06-13 2018-06-13 Outpatient MarcelloMoose reyes Jt rn [id number] 00:00:00 00:00:00 [facility] Oncology Oncology [facility] 2018-05-27 2018-05-27 Appointment JONATHAN VicenteTW [facility] 21 [id number] 15:45:00 15:45:00 ; Anthony Jefferson MD 2018-05-23 2018-05-23 Appointment [facility] [id number] 08:30:00 08:30:00 ; CIM Bar zhang, Nuclear 2 2018-05-14 2018-05-[address] [facility] [id number] 13:30:00 13:30:00 ; Ultrasound Room 1, Bar zhang MD 2018-05-13 2018-05-13 App[facility]ment [facility] 21 [id number] 10:30:00 10:30:00 ; Anthony Jefferson MD 2018-02-25 2018-02-[address] [facility] [id number] 14:30:00 14:30:00 ; Anthony Sepluveda M.D. 2018-02-14 2018-02-[address] [facility] [id number] 09:30:00 09:30:00 ; Sagar Bonds MD 2018-02-06 2018-02-06 Kenya Fields [facility] [id number] 00:00:00 00:00:00 [facility] Oncology Oncology [facility] 2018-01-24 2018-01-24 Outpatient [facility] n [id number] 00:00:00 00:00:00 [facility] Oncology [facility] 2018-01-23 2018-01-23 [facility] [id number] 00:00:00 00:00:00 [facility] Oncology [facility] 2018-01-18 2018-01-[address] [facility] [id number] 14:45:00 14:45:00 ; Anthony Sepulveda M.D. 2018-01-16 2018-01-16 Appointment JONATHAN VicenteKATYA [facility] 20 [id number] 10:45:00 10:45:00 ; Anthony Jefferson MD 2018-01-16 2018-01-16 Outpatient [facility] n [id number] 00:00:00 00:00:00 [facility] Oncology [facility] 2017-12-12 2017-12-12 Outpatient Moose Zambrano Jt rn [id number] 00:00:00 00:00:00 [facility] Oncology [facility] 2017-11-15 2017-11-15 JONATHAN EduardoTAnali CETW [id number] 10:00:00 10:00:00 ; Kelvin Echols MD 2017-10-31 2017-10-31 Kenya Zambrano Mooseyenni [facility] [id number] 00:00:00 00:00:00 Dr. Tobias fraire [facility] Oncology [facility] [place] 2017-10-26 2017-10-26 Outpatient Ann Zambrano rn [id number] 00:00:00 00:00:00 [facility] Oncology [facility]cology [facility] [place] 2017-09-13 2017-09-13 Outpatient Moose Moose n [id number] 00:00:00 00:00:00 [facility] Oncology Oncology [facility] 2017-07-24 2017-07-24 Kenya Damian [facility] [id number] 00:00:00 00:00:00 [facility] Oncology [facility]cology [facility] [place] 2017-07-19 2017-07-19 Outpatient Ann Virk n [id number] 00:00:00 00:00:00 [facility] Oncology Oncology [facility] 2017-07-16 2017-07-16 Outpatient Moose Moose n [id number] 00:00:00 00:00:00 [facility] Oncology [facility]cology [facility] [place] 2017-06-19 2017-06-19 Kenya Damian [facility] [id number] 00:00:00 00:00:00 [facility] Oncology Oncology [facility] 2017-06-14 2017-06-14 Outpatient Ann Zambrano rn [id number] 00:00:00 00:00:00 [facility] Oncology [facility]cology [facility] [place] 2017-06-08 2017-06-08 Outpatient Moose Ann n [id number] 00:00:00 00:00:00 [facility] Oncology [facility]cology [facility] [place] 2017-05-31 2017-05-31 Outpatient Ann Juarez n [id number] 00:00:00 00:00:00 [facility] Oncology [facility]cology [facility] [place] 2017-04-24 2017-04-24 Kenya Zambrano [facility] [id number] 00:00:00 00:00:00 Dr. Tobias fraire [facility] Oncology [facility]cology [facility] [place] 2017-04-12 2017-04-12 Outpatient Ann Zambrano rn [id number] 00:00:00 00:00:00 [facility] Oncology Oncology [facility] [place] 2017-04-11 2017-04-11 Outpatient Ann Juarez n [id number] 00:00:00 00:00:00 [facility] Oncology Oncology [facility] [place] 2017-03-23 2017-03-23 Outpatient Marcelloamy Ann Virkabhinav rn [id number] 00:00:00 00:00:00 [facility] Oncology Oncology [facility] [place] 2017-03-15 2017-03-15 Shawn Fieldsmarlon [facility] [id number] 00:00:00 00:00:00 Sammi [facility] Oncology [facility]cology [facility] [place] 2017-03-13 2017-03-13 Outpatient Ann Juarez n [id number] 00:00:00 00:00:00 [facility] Oncology [facility]cology [facility] [place] 2017-03-12 2017-03-12 Outpatient Marcelloamy Ann Virkabhinav rn [id number] 00:00:00 00:00:00 [facility] Oncology [facility]cology [facility] [place] 2017-03-09 2017-03-09 Outpatient Ann Juarez n [id number] 00:00:00 00:00:00 [facility] Oncology Oncology [facility] [place] 2017-03-08 2017-03-08 Outpatient Ann Juarez n [id number] 00:00:00 00:00:00 [facility] Oncology [facility]cology [facility] [place] 2017-03-06 2017-03-06 Outpatient Ann Juarez n [id number] 00:00:00 00:00:00 [facility] Oncology [facility]cology [facility] [place] 2017-03-02 2017-03-02 [facility] [id number] 00:00:00 00:00:00 Dr. Tobias Collado [facility] Oncology [facility]cology [facility] [place] 2017-02-23 2017-02-23 Outpatient Shawnmarlon Ann Jt rn [id number] 00:00:00 [facility]00[facility] [place] 2017-02-16 2017-02-16 Kenya Rushing Mooseyenni [facility] [id number] 00:00:00 00:00:00 Hui Collado [facility] Oncology [facility]cology [facility] [place] 2017-02-12 2017-02-12 Outpatient Ann Juarez n [id number] 00:00:00 00:00:00 n Medical [facility] On[facility] [place] 2017-02-07 2017-02-07 Outpatient Ann Juarez n [id number] 00:00:00 00:00:00 n Medical Medical Oncology [facility] [place] 2017-02-06 2017-02-06 Outpatient Ann Virker n [id number] 00:00:00 00:00:00 n Medical Medical Oncology [facility] [place] 2017-02-03 2017-02-03 Outpatient Ann Juarez n [id number] 00:00:00 00:00:00 n Medical Medical Oncology [facility] [place] 2017-01-24 2017-01-24 Outpatient Ann Juarez n [id number] 00:00:00 00:00:00 n Medical Medical Oncology [facility] [place] 2017-01-22 2017-01-22 Outpatient Ann Juarez n [id number] 00:00:00 00:00:00 n Medical Medical Oncology [facility] [place] 2017-01-17 2017-01-17 Outpatient Ann Juarez n [id number] 00:00:00 00:00:00 n [facility] Medical Oncology [facility]cology [facility] [place] 2017-01-16 2017-01-16 Outpatient Ann Juarez n [id number] 00:00:00 00:00:00 n Medical Medical Oncology [facility] [place] 2017-01-15 2017-01-15 Kenya Rushing [facility] [id number] 00:00:00 00:00:00 Hui Collado [facility] Medical Oncology [facility]cology [facility] [place] 2017-01-11 2017-01-11 Outpatient Ann Juarez n [id number] 00:00:00 00:00:00 n [facility] Medical Oncology [facility]cology [facility] [place] 2017-01-08 2017-01-08 Outpatient Ann Virkyenni n [id number] 00:00:00 00:00:00 n Medical Medical Oncology [facility] [place] 2017-01-02 2017-01-02 Outpatient Ann Zambrano rn [id number] 00:00:00 00:00:00 Tobias n Medical Medical Oncology [facility] [place] 2016-12-27 2016-12-27 Outpatient Ann Mooseyenni n [id number] 00:00:00 00:00:00 n [facility] Medical Oncology [facility]cology [facility] [place] 2016-12-26 2016-12-26 Outpatient Ann Zambrano rn [id number] 00:00:00 00:00:00 Tobias [facility] Medical Oncology [facility] [place] 2016-12-25 2016-12-25 Outpatient Ann Mooseyenni n [id number] 00:00:00 00:00:00 [facility] Oncology [facility]cology [facility] [place] 2016-12-22 2016-12-22 Outpatient Ann Mooseyenni n [id number] 00:00:00 00:00:00 [facility] Oncology [facility]cology [facility] [place] 2016-12-19 2016-12-19 Outpatient Ann Zambrano rn [id number] 00:00:00 00:00:00 [facility] Oncology [facility]cology [facility] [place] 2016-12-18 2016-12-18 Outpatient Ann Mooseyenni n [id number] 00:00:00 00:00:00 [facility] Oncology [facility]cology [facility] [place] 2016-12-12 2016-12-12 Outpatient Ann Zambrano rn [id number] 00:00:00 00:00:00 [facility] Oncology [facility]cology [facility] [place] 2016-12-05 2016-12-05 Kenya Rushing [facility] [id number] 00:00:00 00:00:00 Hui Lemos [facility] Oncology [facility]cology [facility] [place] 2016-12-04 2016-12-04 Outpatient Ann Zambrano rn [id number] 00:00:00 00:00:00 [facility] Oncology [facility]cology [facility] [place] 2016-12-01 2016-12-01 Outpatient Ann Mooseyenni n [id number] 00:00:00 00:00:00 [facility] Oncology Oncology [facility] [place] 2016-11-30 2016-11-30 Outpatient Ann Juarez n [id number] 00:00:00 00:00:00 [facility] Oncology [facility]cology [facility] [place] 2016-11-28 2016-11-28 Outpatient Ann Zambrano rn [id number] 00:00:00 00:00:00 [facility] Medical Oncology [facility]cology [facility] [place] 2016-11-26 2016-11-26 Outpatient Ann Juarez n [id number] 00:00:00 00:00:00 [facility] Oncology [facility]cology [facility] [place] 2016-11-24 2016-11-24 Outpatient Ann Zambrano rn [id number] 00:00:00 00:00:00 [facility] Oncology [facility]cology [facility] [place] 2016-11-21 2016-11-21 Outpatient Ann Zambrano rn [id number] 00:00:00 00:00:00 [facility] Oncology [facility]cology [facility] [place] 2016-11-14 2016-11-14 Outpatient ShawnAnn mason Jt rn [id number] 00:00:00 00:00:00 [facility] Oncology [facility]cology [facility] [place] 2016-11-08 2016-11-08 Outpatient Ann Juarez n [id number] 00:00:00 00:00:00 [facility] Oncology Oncology [facility] 2016-11-07 2016-11-07 Shawn Rushingmarlon Mooseyenni Patricio [id number] 00:00:00 00:00:00 Hui Lemos [facility] Oncology [facility]cology [facility] [place] 2016-10-31 2016-10-31 Outpatient Shawnmarlon Mooseyenni Waters rn [id number] 00:00:00 00:00:00 [facility] Oncology Oncology [facility] 2016-10-24 2016-10-24 Outpatient MarcelloMoose reyesyenni Waters rn [id number] 00:00:00 00:00:00 [facility] Oncology Oncology [facility] 2016-10-18 2016-10-18 Outpatient Ann Mooseyenni n [id number] 00:00:00 00:00:00 [facility] Oncology Oncology [facility] 2016-10-17 2016-10-17 Outpatient Shawnmarlon Mooseyenni Waters rn [id number] 00:00:00 00:00:00 [facility] Oncology Oncology [facility] 2016-10-10 2016-10-10 Outpatient MarcelloAnn reyes Moosee rn [id number] 00:00:00 00:00:00 [facility] Oncology Oncology [facility] 2016-10-03 2016-10-03 Shawn Rushingmarlon Mooseyenni [facility] [id number] 00:00:00 00:00:00 Hui Lemos [facility] Medical Oncology [facility] [place] 2016-09-26 2016-09-26 Outpatient ShawnmarlonAnne rn [id number] 00:00:00 00:00:00 [facility] Oncology Oncology [facility] 2016-09-19 2016-09-19 Outpatient Shawnmarlon Mooseyenni Virke rn [id number] 00:00:00 00:00:00 [facility] Oncology Oncology [facility] 2016-09-14 2016-09-14 Outpatient Ann Mooseyenni n [id number] 00:00:00 00:00:00 Medical Medical Oncology [facility] [place] 2016-09-12 2016-09-12 Outpatient Ann Mooeser n [id number] 00:00:00 00:00:00 [facility] Medical Oncology [facility]cology [facility] [place] 2016-09-05 2016-09-05 Outpatient Ann Zambrano rn [id number] 00:00:00 00:00:00 Tobias fraire [facility] Medical Oncology Oncology [facility] [place] 2016-08-22 2016-08-22 Kenya Rushing [facility] [id number] 00:00:00 00:00:00 Hui Collado [facility] Medical Oncology [facility] [place] 2016-08-11 2016-08-11 Outpatient Mooseer Mooseer n [id number] 00:00:00 00:00:00 [facility] Medical Oncology [facility] [place] 2016-08-04 2016-08-04 Outpatient Mooseer Mooseer n [id number] 00:00:00 00:00:00 [facility] Medical Oncology [facility] [place] 2016-08-02 2016-08-02 Outpatient Ann Mooseyenni n [id number] 00:00:00 00:00:00 [facility] Medical Oncology [facility] [place] 2016-08-01 2016-08-01 Outpatient Ann Mooseyenni n [id number] 00:00:00 00:00:00 [facility] Medical Oncology [facility] [place] 2016-07-31 2016-07-31 Outpatient Ann Zambrano rn [id number] 00:00:00 00:00:00 Tobias [facility] Medical Oncology [facility] [place] 2016-07-24 2016-07-24 Kenya Zambrano [facility] [id number] 00:00:00 00:00:00 Dr. Tobias fraire [facility] Medical Oncology [facility] [place] 2016-07-19 2016-07-19 Outpatient Ann Mooseer n [id number] 00:00:00 00:00:00 n Medical Medical Oncology [facility] [place] 2016-07-16 2016-07-16 Outpatient Mooseer [facility] n [id number] 00:00:00 00:00:00 n [facility] Medical Oncology [facility] [place] 2016-07-10 2016-07-10 Outpatient [facility] n [id number] 00:00:00 00:00:00 n [facility] Medical Oncology [facility] [place] 2016-07-05 2016-07-05 Outpatient [facility] n [id number] 00:00:00 00:00:00 n [facility] Medical Oncology Oncology [facility] 2016-07-04 2016-07-04 Outpatient [facility] n [id number] 00:00:00 00:00:00 [facility] 2016-06-28 2016-06-28 Outpatient [facility] n [id number] 00:00:00 00:00:00 [facility] Immunizations Ordered Immunization Filled Immunization Date Status Commen ts Refusal Name Name Reason Fluzone High-Dose 2018-01-16 Completed 0.5 ML Intramuscular 11:10:00 Suspension Prefilled Syringe Fluzone Quadrivalent Unknown Completed decline 0.5 ML Intramuscular Suspension Prefilled Syringe Payers Payer Name Policy Type Policy Number Effective Date Expiration D ate Social History Smoking Status Start Date Stop Date Ex-smoker (finding) Current every day smoker 2019-12-11 00:00:00 2019-12-11 00:0 0:00 Social History Observation Description Sex Female Vital Signs Vital Name Observation Time Observation Value Comments Systolic blood pressure 2019-12-11 11:16:00 100 mm[Hg] Diastolic blood pressure 2019-12-11 11:16:00 58 mm[Hg] Weight 2019-12-11 11:16:00 132 [lb_av] Body mass index (BMI) [Ratio] 2019-12-11 11:16:00 19.49 kg/m2 Heart Rate 2019-12-11 11:16:00 56 /min BP melendez 2019-12-11 09:43:48 68.0000 mm[Hg] Bdy height 2019-12-11 09:43:48 69.0000 [in_i] SaO2% BldA PulseOx 2019-12-11 09:43:48 95.0000 % Heart rate 2019-12-11 09:43:48 91.0000 /min Resp rate 2019-12-11 09:43:48 18.0000 /min BP sys 2019-12-11 09:43:48 103.0000 mm[Hg] Body temperature 2019-12-11 09:43:48 98.0000 [degF] BP melendez 2019-08-26 14:30:10 84.0000 mm[Hg] Bdy height 2019-08-26 14:30:10 69.0000 [in_i] SaO2% BldA PulseOx 2019-08-26 14:30:10 97.0000 % Heart rate 2019-08-26 14:30:10 92.0000 /min Resp rate 2019-08-26 14:30:10 18.0000 /min BP sys 2019-08-26 14:30:10 140.0000 mm[Hg] Body temperature 2019-08-26 14:30:10 98.3000 [degF] BP melendez 2019-07-17 10:07:33 73.0000 mm[Hg] Bdy height 2019-07-17 10:07:33 69.0000 [in_i] SaO2% BldA PulseOx 2019-07-17 10:07:33 95.0000 % Heart rate 2019-07-17 10:07:33 88.0000 /min Resp rate 2019-07-17 10:07:33 18.0000 /min BP sys 2019-07-17 10:07:33 118.0000 mm[Hg] Body temperature 2019-07-17 10:07:33 97.3000 [degF] BMI 2019-01-09 10:22:42 22.2700 BP melendez 2019-01-09 10:22:42 77.0000 mm[Hg] Bdy height 2019-01-09 10:22:42 69.0000 [in_i] SaO2% BldA PulseOx 2019-01-09 10:22:42 98.0000 % Heart rate 2019-01-09 10:22:42 60.0000 /min Resp rate 2019-01-09 10:22:42 16.0000 /min BP sys 2019-01-09 10:22:42 144.0000 mm[Hg] Body temperature 2019-01-09 10:22:42 97.7000 [degF] Weight 2019-01-09 10:22:42 150.8000 [lb_av] BMI 2018-07-05 09:34:59 22.3000 BP melendez 2018-07-05 09:34:59 68.0000 mm[Hg] Bdy height 2018-07-05 09:34:59 69.0000 [in_i] SaO2% BldA PulseOx 2018-07-05 09:34:59 93.0000 % Heart rate 2018-07-05 09:34:59 86.0000 /min Resp rate 2018-07-05 09:34:59 16.0000 /min BP sys 2018-07-05 09:34:59 125.0000 mm[Hg] Body temperature 2018-07-05 09:34:59 96.0000 [degF] Weight 2018-07-05 09:34:59 151.0000 [lb_av] BP melendez 2018-02-06 11:13:32 85.0000 mm[Hg] Bdy height 2018-02-06 11:13:32 69.0000 [in_i] Heart rate 2018-02-06 11:13:32 63.0000 /min Resp rate 2018-02-06 11:13:32 20.0000 /min BP sys 2018-02-06 11:13:32 131.0000 mm[Hg] Body temperature 2018-02-06 11:13:32 96.3000 [degF] BP melendez 2017-10-31 15:40:13 57.0000 mm[Hg] Bdy height 2017-10-31 15:40:13 69.0000 [in_i] Heart rate 2017-10-31 15:40:13 50.0000 /min Resp rate 2017-10-31 15:40:13 14.0000 /min BP sys 2017-10-31 15:40:13 104.0000 mm[Hg] Body temperature 2017-10-31 15:40:13 96.9000 [degF] BP melendez 2017-07-24 14:45:35 65.0000 mm[Hg] Bdy height 2017-07-24 14:45:35 69.0000 [in_i] Heart rate 2017-07-24 14:45:35 67.0000 /min Resp rate 2017-07-24 14:45:35 18.0000 /min BP sys 2017-07-24 14:45:35 128.0000 mm[Hg] Body temperature 2017-07-24 14:45:35 97.5000 [degF] BP melendez 2017-06-19 14:46:02 69.0000 mm[Hg] Bdy height 2017-06-19 14:46:02 69.0000 [in_i] Heart rate 2017-06-19 14:46:02 68.0000 /min Resp rate 2017-06-19 14:46:02 18.0000 /min BP sys 2017-06-19 14:46:02 170.0000 mm[Hg] Body temperature 2017-06-19 14:46:02 96.4000 [degF] BP melendez 2017-04-24 09:31:45 63.0000 mm[Hg] Bdy height 2017-04-24 09:31:45 69.0000 [in_i] Heart rate 2017-04-24 09:31:45 74.0000 /min Resp rate 2017-04-24 09:31:45 17.0000 /min BP sys 2017-04-24 09:31:45 109.0000 mm[Hg] Body temperature 2017-04-24 09:31:45 97.6000 [degF] BP melendez 2017-03-15 09:02:34 91.0000 mm[Hg] Bdy height 2017-03-15 09:02:34 69.0000 [in_i] Heart rate 2017-03-15 09:02:34 65.0000 /min Resp rate 2017-03-15 09:02:34 14.0000 /min BP sys 2017-03-15 09:02:34 189.0000 mm[Hg] Body temperature 2017-03-15 09:02:34 96.8000 [degF] BP melendez 2017-03-02 11:05:51 68.0000 mm[Hg] Bdy [facility] 2017-03-02 11:05:51 69.0000 [in_i] Heart rate 2017-03-02 11:05:51 70.0000 /min Resp rate 2017-03-02 11:05:51 16.0000 /min BP sys 2017-03-02 11:05:51 121.0000 mm[Hg] Body temperature 2017-03-02 11:05:51 98.0000 [degF] [facility] 2017-03-02 10:42:17 69.0000 [in_i] Heart rate 2017-03-02 10:42:17 71.0000 /min Resp rate 2017-03-02 10:42:17 16.0000 /min Body temperature 2017-03-02 10:42:17 98.0000 [degF] BMI 2017-02-16 10:31:05 21.1900 BP melendez 2017-02-16 10:31:05 77.0000 mm[Hg] Bdy [facility] 2017-02-16 10:31:05 69.0000 [in_i] Heart rate 2017-02-16 10:31:05 69.0000 /min Resp rate 2017-02-16 10:31:05 16.0000 /min BP sys 2017-02-16 10:31:05 125.0000 mm[Hg] Body temperature 2017-02-16 10:31:05 97.0000 [degF] Weight 2017-02-16 10:31:05 143.5000 [lb_av] Bdy height 2017-01-15 15:22:19 69.0000 [in_i] BP melendez 2017-01-15 14:12:32 70.0000 mm[Hg] Bdy height 2017-01-15 14:12:32 69.0000 [in_i] Heart rate 2017-01-15 14:12:32 71.0000 /min Resp rate 2017-01-15 14:12:32 18.0000 /min BP sys 2017-01-15 14:12:32 144.0000 mm[Hg] Body temperature 2017-01-15 14:12:32 97.4000 [degF] BMI 2016-12-12 10:15:04 21.8600 BP melendez 2016-12-12 10:15:04 93.0000 mm[Hg] Bdy height 2016-12-12 10:15:04 69.0000 [in_i] Heart rate 2016-12-12 10:15:04 82.0000 /min Resp rate 2016-12-12 10:15:04 18.0000 /min BP sys 2016-12-12 10:15:04 138.0000 mm[Hg] Body temperature 2016-12-12 10:15:04 98.0000 [degF] Weight 2016-12-12 10:15:04 148.0000 [lb_av] BMI 2016-12-05 10:00:30 22.4800 BP melendez 2016-12-05 10:00:30 69.0000 mm[Hg] Bdy height 2016-12-05 10:00:30 69.0000 [in_i] Heart rate 2016-12-05 10:00:30 83.0000 /min Resp rate 2016-12-05 10:00:30 16.0000 /min BP sys 2016-12-05 10:00:30 113.0000 mm[Hg] Body temperature 2016-12-05 10:00:30 97.2000 [degF] Weight 2016-12-05 10:00:30 152.2000 [lb_av] BMI 2016-11-21 09:34:43 21.8600 BP melendez 2016-11-21 09:34:43 91.0000 mm[Hg] Bdy height 2016-11-21 09:34:43 69.0000 [in_i] Heart rate 2016-11-21 09:34:43 80.0000 /min Resp rate 2016-11-21 09:34:43 14.0000 /min BP sys 2016-11-21 09:34:43 123.0000 mm[Hg] Body temperature 2016-11-21 09:34:43 97.0000 [degF] Weight 2016-11-21 09:34:43 148.0000 [lb_av] BMI 2016-11-14 09:55:51 21.8900 BP melendez 2016-11-14 09:55:51 80.0000 mm[Hg] Bdy height 2016-11-14 09:55:51 69.0000 [in_i] Heart rate 2016-11-14 09:55:51 82.0000 /min Resp rate 2016-11-14 09:55:51 12.0000 /min BP sys 2016-11-14 09:55:51 125.0000 mm[Hg] Body temperature 2016-11-14 09:55:51 97.0000 [degF] Weight 2016-11-14 09:55:51 148.2000 [lb_av] BMI 2016-11-07 11:21:57 22.3000 BP melendez 2016-11-07 11:21:57 77.0000 mm[Hg] Bdy height 2016-11-07 11:21:57 69.0000 [in_i] Heart rate 2016-11-07 11:21:57 74.0000 /min Resp rate 2016-11-07 11:21:57 18.0000 /min BP sys 2016-11-07 11:21:57 132.0000 mm[Hg] Body temperature 2016-11-07 11:21:57 96.5000 [degF] Weight 2016-11-07 11:21:57 151.0000 [lb_av] BP melendez 2016-10-24 12:06:35 90.0000 mm[Hg] Bdy height 2016-10-24 12:06:35 69.0000 [in_i] Heart rate 2016-10-24 12:06:35 62.0000 /min BP sys 2016-10-24 12:06:35 150.0000 mm[Hg] BMI 2016-10-24 11:11:53 23.1300 BP melendez 2016-10-24 11:11:53 102.0000 mm[Hg] Bdy height 2016-10-24 11:11:53 69.0000 [in_i] Heart rate 2016-10-24 11:11:53 71.0000 /min Resp rate 2016-10-24 11:11:53 16.0000 /min BP sys 2016-10-24 11:11:53 168.0000 mm[Hg] Body temperature 2016-10-24 11:11:53 97.1000 [degF] Weight 2016-10-24 11:11:53 156.6000 [lb_av] BMI 2016-10-17 10:41:39 23.0100 BP melendez 2016-10-17 10:41:39 71.0000 mm[Hg] Bdy height 2016-10-17 10:41:39 69.0000 [in_i] Heart rate 2016-10-17 10:41:39 81.0000 /min Resp rate 2016-10-17 10:41:39 16.0000 /min BP sys 2016-10-17 10:41:39 117.0000 mm[Hg] Body temperature 2016-10-17 10:41:39 97.2000 [degF] Weight 2016-10-17 10:41:39 155.8000 [lb_av] BP melendez 2016-10-10 16:31:04 77.0000 mm[Hg] Bdy height 2016-10-10 16:31:04 69.0000 [in_i] Heart rate 2016-10-10 16:31:04 76.0000 /min BP sys 2016-10-10 16:31:04 127.0000 mm[Hg] BMI 2016-10-10 13:52:18 23.2400 BP melendez 2016-10-10 13:52:18 106.0000 mm[Hg] Bdy height 2016-10-10 13:52:18 69.0000 [in_i] Heart rate 2016-10-10 13:52:18 72.0000 /min Resp rate 2016-10-10 13:52:18 16.0000 /min BP sys 2016-10-10 13:52:18 151.0000 mm[Hg] Body temperature 2016-10-10 13:52:18 97.6000 [degF] Weight 2016-10-10 13:52:18 157.4000 [lb_av] BMI 2016-10-03 11:46:32 23.3600 BP melendez 2016-10-03 11:46:32 83.0000 mm[Hg] Bdy height 2016-10-03 11:46:32 69.0000 [in_i] Heart rate 2016-10-03 11:46:32 63.0000 /min Resp rate 2016-10-03 11:46:32 18.0000 /min BP sys 2016-10-03 11:46:32 138.0000 mm[Hg] Body temperature 2016-10-03 11:46:32 97.6000 [degF] Weight 2016-10-03 11:46:32 158.2000 [lb_av] BMI 2016-09-19 11:14:37 23.7800 BP melendez 2016-09-19 11:14:37 70.0000 mm[Hg] Bdy height 2016-09-19 11:14:37 69.0000 [in_i] Heart rate 2016-09-19 11:14:37 65.0000 /min Resp rate 2016-09-19 11:14:37 16.0000 /min BP sys 2016-09-19 11:14:37 114.0000 mm[Hg] Body temperature 2016-09-19 11:14:37 96.4000 [degF] Weight 2016-09-19 11:14:37 161.0000 [lb_av] BMI 2016-09-12 10:25:14 24.1300 BP melendez 2016-09-12 10:25:14 68.0000 mm[Hg] Bdy height 2016-09-12 10:25:14 69.0000 [in_i] Heart rate 2016-09-12 10:25:14 64.0000 /min Resp rate 2016-09-12 10:25:14 18.0000 /min BP sys 2016-09-12 10:25:14 119.0000 mm[Hg] Body temperature 2016-09-12 10:25:14 97.6000 [degF] Weight 2016-09-12 10:25:14 163.4000 [lb_av] BMI 2016-09-05 10:31:30 23.8100 BP melendez 2016-09-05 10:31:30 72.0000 mm[Hg] Bdy height 2016-09-05 10:31:30 69.0000 [in_i] SaO2% BldA PulseOx 2016-09-05 10:31:30 98.0000 % Heart rate 2016-09-05 10:31:30 56.0000 /min Resp rate 2016-09-05 10:31:30 18.0000 /min BP sys 2016-09-05 10:31:30 145.0000 mm[Hg] Body temperature 2016-09-05 10:31:30 97.9000 [degF] Weight 2016-09-05 10:31:30 161.2000 [lb_av] BMI 2016-08-22 11:18:56 23.9200 BP melendez 2016-08-22 11:18:56 73.0000 mm[Hg] Bdy height 2016-08-22 11:18:56 69.0000 [in_i] Heart rate 2016-08-22 11:18:56 59.0000 /min Resp rate 2016-08-22 11:18:56 16.0000 /min BP sys 2016-08-22 11:18:56 152.0000 mm[Hg] Body temperature 2016-08-22 11:18:56 95.9000 [degF] Weight 2016-08-22 11:18:56 162.0000 [lb_av] BMI 2016-07-24 15:52:57 24.7200 Bdy height 2016-07-24 15:52:57 69.0000 [in_i] Body temperature 2016-07-24 15:52:57 95.7000 [degF] Weight 2016-07-24 15:52:57 167.4000 [lb_av] Hospital Discharge Instructions NameDatesDetailsInstructions not documented
== END ==
LOC: RAD 08:00
PROVIDERS: ATTEND Physician Assistant Medical
DX: Z53.9 Procedure and treatment not carried out, unspecified reason (principal); C34.31 Malignant neoplasm of lower lobe, right bronchus or lung

== ENCOUNTER → 2019-11-28 | Outpatient (CLI) | payer MEDICARE ==
--- NOTE | 2019-11-28 13:15 | RADIOLOGY REPORT (SQ) ---
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 Images reviewed with lung, soft tissue and bone windows. Reconstructed coronal and sagittal MPR images reviewed. All images stored on PACS. All CT scanners at this facility use dose modulation, iterative reconstruction, and/or weight based d osing when appropriate to reduce radiation dose to as low as reasonably achievable (ALARA). [facility]: Dose Right [facility]: CareDose [facility]: Dose Right [facility]: Teradose 4D [facility]: [employer] RADIATION DOSE: CT Rad equipment meets quality standard of care and radiation dose reduction techniq ues were employed. CTDIvol: 4.4 - 4.5 mGy. DLP: 375 mGy-cm. mGy. LIMITATIONS: None. FINDINGS: AXILLAE: No adenopathy. CHEST WALL: No masses. No subcutaneous air. LUNGS: Bilateral emphysematous changes. There are 4 stable left lung pulmonary nodules. 1 in the up per lobe which runs along the major fissure. This measures 9 mm in diameter. 3 in the left lower lo be tumor subpleural the 3rd is in the left medial base. These are unchanged in size or configuration from prior study. PLEURA: Pleural-based soft tissue mass on the right at the level of T10-T11 and T12. The mass invade s the chest wall as well is the vertebral bodies of T10-T11 and T12. There is epidural extension. F or slight differences in technique and positioning there is been very little change since prior study . THYROID: No masses or significant asymmetry. HILAR AND MEDIASTINAL STRUCTURES: No identified masses or abnormal nodes. AORTA AND GREAT VESSELS: No aneurysm. HEART: Stable pericardial effusion and/or pericardial thickening. HARDWARE AND LIFELINES: [id number] is in place on the right. BONES: Lytic changes in the T10-T11 and T12 vertebral bodies at the level of the pleural base soft ti ssue mass. OTHER: No other significant finding. IMPRESSION: No interval change in the chest with large pleural base mass in the right lower lobe wit h extension into the T10, T11 and T12 vertebral bodies. There is encroachment on the spinal canal as well. Stable left lung pulmonary nodules. Stable bilateral emphysematous changes. COMPARISON: None. TECHNIQUE: CT scan of the abdomen and pelvis performed without intravenous contrast and withoutoral contrast using helical scanning technique with dynamic intravenous contrast injection. Images review ed with lung, soft tissue and bone windows. Reconstructed coronal and sagittal MPR images reviewed. All images stored on PACS. All CT scanners at this facility use dose modulation, iterative reconstruction, and/or weight based d osing when appropriate to reduce radiation dose to as low as reasonably achievable (ALARA). [facility]: Dose Right [facility]: [employer] [facility]: Dose Right [facility]: Teradose 4D [facility]: [employer] RADIATION DOSE: CT Rad equipment meets quality standard of care and radiation dose reduction techniq ues were employed. CTDIvol: 4.4 - 4.5 mGy. DLP: 375 mGy-cm.mGy. LIMITATIONS: None. FINDINGS: LIVER: Normal size. No masses. No dilated ducts. SPLEEN: Normal size. No focal lesions. PANCREAS: No masses. No significant calcifications. No adjacent inflammation or peripancreatic flui d collections. Pancreatic duct not dilated. GALLBLADDER: No interval change. ADRENAL GLANDS: Unchanged. RIGHT KIDNEY AND URETER: No solid masses. Assessment limited by lack of IV contrast. No significant c alcification. No hydronephrosis or hydroureter. Vascular calcification is noted. LEFT KIDNEY AND URETER: No solid masses. Assessment limited by lack of IV contrast. No significant ca lcification. No hydronephrosis or hydroureter. Vascular calcification is noted. AORTA AND VESSELS: Stable in appearance with endovascular stent graft in place. RETROPERITONEUM: No retroperitoneal adenopathy, hemorrhage or masses. APPENDIX: Not visualized. LARGE AND SMALL BOWEL: No dilatation. No masses. No wall thickening. ABDOMINAL WALL: No hernia or masses. PERITONEAL CAVITY: No free air. No free fluid. No peritoneal implants or masses. PELVIS: Stable stented bladder and stable complex area of mixed attenuation in the right adnexum. BONES: Degenerative changes in the spine. No evidence of metastatic disease other than direct involv ement of the vertebral bodies as described above. OTHER: No other significant finding. IMPRESSION: Stable CT of the abdomen pelvis. No definite metastatic disease. TECHNICAL DOCUMENTATION: JOB ID: [id number] Quality ID # [id number]: Final reports with documentation of one or more dose reduction techniques (e.g., Au tomated exposure control, adjustment of the mA and/or kV according to patient size, use of iterative reconstruction technique) 2010 [employer]- All Rights Reserved Reading location - IP/workstation name: [email or web address] [email or web address]
== END ==
LOC: RAD 10:09
PROVIDERS: ATTEND Internal Medicine
DX: C34.31 Malignant neoplasm of lower lobe, right bronchus or lung (principal); J43.9 Emphysema, unspecified
CPT/HCPCS: 71250; 74176; 82565